=== PATIENT | male | born 1945 | race Hispanic/Latino ===

== ENCOUNTER → 2023-07-16 | Outpatient (CLI) | payer MEDICARE, OTHER | END | disposition home or self-care (01) | LOC: SHCH 14:53 | PROVIDERS: ATTEND Internal Medicine | DX: I47.29 Other ventricular tachycardia (principal); E11.9 Type 2 diabetes mellitus without complications | CPT/HCPCS: 93306 ==

== ENCOUNTER → 2024-08-30 | Outpatient (CLI) | payer OTHER ==
[~2024-08-30] MED LIST: FERS325 PO; GLUC1TAB22 PO; INSU3INS3 SQ; LISI2.5T13 PO; MELA1TAB17 PO; METO-408 PO; SERT100T PO; SITA1TAB2 PO; [UNRECOGNIZED DRUG - CODE] PO
== END | disposition home or self-care (01) ==
LOC: SHCH 12:51
PROVIDERS: ATTEND Internal Medicine
DX: I70.203 Unspecified atherosclerosis of native arteries of extremities, bilateral legs (principal)
CPT/HCPCS: 93925

== ENCOUNTER 2024-12-28 16:00 | Inpatient (IN) | payer MEDICARE ==
[~2024-12-28] VITALS: Ht 167.6 cm; Wt 58.5 kg
[2024-12-28 12:19] LABS: BASOPHILS # (AUTO) 0.03 K/uL (0.00-0.20); BASOPHILS % (AUTO) 0.4 % (0.0-5.0); EOSINOPHILS # (AUTO) 0.16 K/uL (0.00-0.70); EOSINOPHILS % (AUTO) 2.3 % (0.0-8.0); HEMATOCRIT 32.1 % (42-54); IMMATURE GRANULOCYTE ABSOLUTE 0.03 K/uL (0-1); LYMPHOCYTES # (AUTO) 1.6 K/uL (1.0-4.8); LYMPHOCYTES % (AUTO) 23.4 % (21.0-51.0); MEAN CORPUSCULAR HGB CONC 32.1 g/dL (32.0-36.0); MEAN CORPUSCULAR VOLUME 93.6 fL (79-99); MONOCYTES # (AUTO) 0.5 K/uL (0.1-1.0); MONOCYTES % (AUTO) 6.9 % (3.0-13.0); NEUTROPHILS # (AUTO) 4.6 K/uL (1.8-7.7); NEUTROPHILS % (AUTO) 66.6 % (40.0-77.0); PLATELET COUNT (AUTO) 168 K/uL (130-400); RED BLOOD CELL COUNT(AUTO) 3.43 MIL/uL (4.50-6.20); RED CELL DISTRIBUTION WIDTH 13.5 % (11.0-15.5)
[2024-12-28 12:30] LABS: INR 0.94 (0.85-1.15); PROTHROMBIN TIME 10.6 SEC (9.6-11.6)
[2024-12-28 12:32] LABS: PARTIAL THROMBOPLASTIN TIME 28.7 SEC (26.3-35.5)
[2024-12-28 12:37] LABS: ALBUMIN 3.2 g/dL (3.5-5.0); CREATININE 1.3 mg/dL (0.5-1.3); POTASSIUM 5.1 mmol/L (3.5-5.1)
[2024-12-28 12:38] VITALS: BP 112/51; PULSE 82; RESP 18; TEMP 97.9
[2024-12-28] MEDS ORDERED: TAMS-1 PO (16:42)
[2024-12-28] MEDS ORDERED: ATOR40TA71 PO (16:42)
[2024-12-28] MEDS ORDERED: ASPI-1443 PO (16:42)
--- NOTE | 2024-12-30 13:00 | NUR ---
DR. ORLANDO MADE AWARE REGARDING H & H RESULTS, OK TO PROCEED.
[2025-01-02] VITALS (24 sets, daily range): BP systolic 112–146; BP diastolic 49–72; PULSE 71–96; RESP 12–20; TEMP 97.6–98.8; O2SAT 98
[2025-01-02] MEDS ORDERED: TRANEXAMIC ACID 1000MG/10ML ONE (07:17)
[2025-01-02] MEDS: ceFAZolin SODIUM 2 GM VIAL ONE (07:50)
[2025-01-02] MEDS: 0.9%NACL 1000ML 1,000 ML IV ONE ×2 (07:50→15:08)
[2025-01-02] MEDS ORDERED: LIDOCAINE PF 100MG/5ML (2%) SYRINGE 5ML ONE (09:47)
[2025-01-02] MEDS ORDERED: rocuRONium bROMide 10MG/1ML 5ML VL ONE ×2 (09:47→11:23)
[2025-01-02] MEDS ORDERED: proPOFol 10 MG/ML 20ML VIAL IV ONE (09:47)
[2025-01-02] MEDS: ceFAZolin SODIUM 2 GM VIAL IVPB ONE (09:56)
--- NOTE | 2025-01-02 10:12 | DS ---
Discharge Summary Hospital Course Summary: The patient was admitted to the hospital postoperatively on 01/02/2025 after undergoing left total hip arthroplasty. They did well with routine postoperative pain control. They worked well with physical therapy. They developed some acute blood loss anemia but remained asymptomatic. The hospital course was otherwise uncomplicated. They were subsequently able to be discharged on postoperative day 3 once discharge arrangements were made with [facility] in three midnight requirement met for insurance. Molasses Feed Mixer(s): none Procedure(s): Left total hip arthroplasty, 01/02/2025 Assessment/Plan: ASSESSMENT: POD 2 status post left total hip arthroplasty PLAN: See discharge instructions Discharge Instructions: Begin working with physical therapy at the facility. Remembered do not flex the hip more than 90 and do not cross midline at the knees or ankles for the 1st six weeks. If you are side sleeper place a pillow between the knees and ankles to prevent the legs from crossing. Dressing may be removed 01/04/2025 and left open to air. Showers ok allowing soap and water to run over the wound. Pat dry. Do not submerge wound in tub/pool. Do not apply ointments. Do not apply Betadine. Do not apply peroxide. Ice packs to decrease pain/swelling. Prescriptions have been sent to the pharmacy: *[facility] 5/325mg 1 tab every 6 hours as needed for severe pain. (please call for refills) Cyclobenzaprine 5mg 1 tab every 8 hours as needed for muscle spasm pain. Colace 100mg 1 tab orally twice a day as needed for constipation. Aspirin 325mg for 30 days to prevent blood clots. Call for a follow-up appointment in 2-3 weeks at [facility]. Home Medications: Active Scripts Hydrocodone/Acetaminophen (Hydrocodon-Acetaminophen 5-325) 5 Mg-325 Mg Tablet, 1 TAB PO Q4H PRN for MODERATE/SEVERE PAIN LEVEL, #28 TAB 0 Refills Prov:OMAR ORLANDO MD 01/05/25 Reported Medications Atorvastatin Calcium (Atorvastatin Calcium) 40 Mg Tablet, 40 MG PO HS, TAB 12/28/24 Tamsulosin HCl (Flomax) 0.4 Mg Cap.er.24h, 0.4 MG PO HS, CAPSULE. 12/28/24 Aspirin (Aspirin EC) 81 Mg Tablet., 81 MG PO DAILY, TAB 12/28/24 Insulin Glargine,Hum.rec.anlog (Lantus Solostar) 100 Unit/Ml (3 Ml) Insuln.pen, 34 UNIT SQ DAILY, SYRINGE 08/12/23 Multivit-Minerals/FA/Lycopene (One-A-Day Men's 50 Plus Tablet) 400 Mcg-370 Mcg Tablet, 1 EACH PO DAILY, TAB 08/12/23 Melatonin/Pyridoxine HCl (B6) (Melatonin 5 mg Tablet) 5 Mg-10 Mg Tablet, 1 EACH PO HS, TAB 08/12/23 Sitagliptin Phos/Metformin HCl (Janumet 50-500 mg Tablet) 50 Mg-500 Mg Tablet, 1 EACH PO BID, TAB 08/12/23 Lisinopril (Lisinopril) 2.5 Mg Tablet, 2.5 MG PO DAILY, TAB 08/12/23 Sertraline HCl (Zoloft) 100 Mg Tablet, 50 MG PO HS, TAB 08/12/23 Gluc Price/Chondro Price A/Vit C/Mn (Glucosamine Chondroitin Tab) 750 Mg-600 Mg-55 Mg- 5 Mg Tablet, 1 EACH PO DAILY, TAB 08/12/23 Ferrous Sulfate (Ferrous Sulfate) 325 Mg (65 Mg Iron) Ectab, 325 MG PO HS, TAB.EC 08/12/23 Metoprolol Succinate (Metoprolol Succinate) 25 Mg Tab.er.24h, 25 MG PO DAILY, TAB 08/12/23 OMAR ORLANDO MD Jan 02, 2025 10:12
[2025-01-02] MEDS ORDERED: dexaMETHasone SOD PHOSPHATE 10MG/ML 1ML VIAL ONE (10:21)
[2025-01-02] MEDS ORDERED: PoTASSium chloRIDE 20MEQ ER 20 MEQ ERTAB PO PRN (10:30)
[2025-01-02] MEDS ORDERED: CALCIUM CARB 500MG PO PRN (10:30)
[2025-01-02] MEDS ORDERED: PoTASSium chl 10% ELIXIR 20MEQ 20 MEQ/15 ML UDCUP PO PRN (10:30)
[2025-01-02] MEDS ORDERED: FERROUS FUMARATE 324 MG TABLET PO PRN (10:30)
[2025-01-02] MEDS ORDERED: FENTanyl CITRate PF 50 MCG/1 ML 2ML VIAL ONE ×2 (10:30→10:37)
[2025-01-02] MEDS ORDERED: PoTASSium chloRIDE 20MEQ/100ML 100 ML IV PRN (10:30)
[2025-01-02] MEDS ORDERED: traMADol HCL 50 MG TABLET PO PRN (10:30)
[2025-01-02] MEDS ORDERED: ePHEDrine SULFate 50 MG/ML AMPULE ONE (11:16)
[2025-01-02] MEDS: INSULIN humuLIN R 100 UNIT/ML 3ML SQ SCH (11:30)
--- NOTE | 2025-01-02 12:05 | HMCIMG ---
HIP UNILAT 4VW LEFT REASON: Lt. total hip arthroplasty. COMPARISON: None TECHNIQUE: Fluoroscopic images of left hip were obtained. FINDINGS: Please see procedure report by referring physician. IMPRESSION: Intraoperative films.
[2025-01-02] MEDS ORDERED: ROPivacaine 0.5% 5MG/ML 30ML ONE (12:10)
--- NOTE | 2025-01-02 12:22 | OP ---
Operative Note: DATE OF PROCEDURE: 01/02/25 SURGEON: OMAR ORLANDO MD LEATHER SPRAYER: Nikolas Johnston ANESTHESIA: General and fascia iliaca block ANESTHESIOLOGIST/CONCRETE BUSTER OPERATOR: Pernell Marks CRNA PREOPERATIVE DIAGNOSIS: Left hip osteoarthritis POSTOPERATIVE DIAGNOSIS: Left hip osteoarthritis PROCEDURE: Left total hip arthroplasty COMPLICATIONS: Periprosthetic fracture of calcar ESTIMATED BLOOD LOSS: 200 cc INDICATIONS: 79-year-old male with severe left hip osteoarthritis failing conservative management. After discussion of the risks, benefits, and alternatives, the patient voluntarily agreed to undergo the aforementioned procedure. IMPLANTS: [employer]hew R3 54 mm shell with 6.5 mm screws x2, OR30 dual mobility construct with Oxinium liner, 42 mm polyethylene insert and 28 mm Oxinium head and -3, high offset size 8 anthology stem, 2.0 accord cerclage cable DESCRIPTION OF PROCEDURE: Patient was properly identified in the preoperative holding area. Surgical site marking was verified and surgery consent reviewed. The patient was then taken to the operating room and placed in supine position on the OR table. After induction of general anesthesia, preoperative antibiotics were given. The patient was then transitioned in the lateral decubitus position with the left side up. All bony prominences were well-padded. Left lower extremity was then prepped and draped in the usual sterile fashion. Surgical time out was done verifying correct surgery, side, site, and location to be performed. We then began the procedure by making approximately 15 cm long incision centered over the greater trochanter. Here we came sharply through skin down to the fascia. Hemostasis was then achieved using Bovie electrocautery. We then incised fascia in line with the skin incision and finger split the tensor muscle proximally. We then placed our Charnley retractor. At this point we identified the vastus ridge and began elevating the full-thickness soft tissue flap off of the vastus ridge, splitting the vastus lateralis and gluteus muscles as necessary. We then proceeded to externally rotate the femur while making this flap. We resected part of the anterior capsule. The femoral head and neck was then delivered into view. We then dislocated the hip and performed a femoral neck osteotomy approximately half fingerbreadth proximal lesser trochanter. We then placed our retractors around the superior and anterior portion of the acetabulum and began to remove the labrum circumferentially. We then began reaming the acetabulum where we reamed up to a size 53 ensuring appropriate anteversion and abduction. We then proceeded to trial with the size 54 acetabular component and this appeared to sit well. We opened our size 54 acetabular component and after irrigating out the wound malleted this into place. It appeared to have good press-fit however we elected to place 6.5 mm s crews x2. We drilled and filled the screws in standard fashion in the posterior superior portion of the cup. We then placed the manhole cover on the center of the cup. The wound was thoroughly irrigated out further and we placed the acetabular liner and impacted this in place in standard fashion. We then proceeded to reposition our retractors to elevate the proximal femur out of the wound. We then used the box chisel and canal finder to began preparing the femoral side and sequentially broached up to the aforementioned size stem. Once we felt we had good fit, fill, and control of the femur with the stem in place we then used our trial head component and reduce the hip with the minus three head due to soft tissue tension. The hip was noted to have some impingement of the greater trochanter around this time the limb with extension and external rotation so we dislocated the hip and trialed once more using a high offset neck. Upon reduction, we had appropriate soft tissue tensioning, limb length and stable range of motion. We therefore dislocated the hip once more removed our trial components thoroughly irrigated the out the wound and placed our final components in standard fashion. Prior to reduction we noted there to be a crack in the calcar. We then elected to place a cerclage cable. This was done in standard fashion just proximal to the lesser trochanter and tightened down and trimmed. The hip was then reduced with the final components in place. It was found to be stable through range of motion with appropriate soft tissue tensioning and appropriate limb length. At this point we placed a bump under the knee and the foot on the male with a stack of towels to allow for internal rotation. We repaired the abductors back to the greater trochanter using #5 Ethibond. We then repaired the rent in the vastus lateralis and gluteus muscles using #1 Vicryl in a running fashion. We removed our Charnley retractor and began to repair the IT band using #1 Vicryl in interrupted [id number] fashion. At this point we began to close her subcutaneous tissue using 2-0 Vicryl. Running 3-0 Monocryl in subcuticular fashion with Dermabond placed over this for the skin. Island barrier dressing was then applied. Patient was returned to supine position with abduction pillow placed, awakened from anesthesia, and taken to the recovery room in stable condition. OMAR ORLANDO MD Jan 02, 2025 12:22
[2025-01-02] MEDS ORDERED: ondanSETRON 4MG INJ ONE (12:36)
[2025-01-02] MEDS: SUGAMMADEX SODIUM 200 MG/2 ML VIAL IV ONE (13:37)
[2025-01-02] MEDS: 0.9%NACL 1000ML 1,000 ML IV SCH (13:37)
[2025-01-02] MEDS: ketOROlac 15MG/ML VIAL (15MG/ML) IV SCH ×2 (13:37→21:54)
--- NOTE | 2025-01-02 14:06 | HMCIMG ---
HIP BILAT 2VW HISTORY: Hip surgery COMPARISON: None TECHNIQUE: 5 images of bilateral hips were obtained. FINDINGS: Total left hip replacement changes are seen. Please see procedure report by referring physician. There is soft tissue swelling with soft tissue emphysema. Vascular calcifications are seen. There is no acute displaced fracture or dislocation. Degenerative changes are seen. IMPRESSION: 1. Findings as described above.
[2025-01-02] MEDS: HYDROcodone/APAP 5/325 1 TAB TABLET PO PRN (15:03)
[2025-01-02] MEDS: GABApentin 100 MG CAPSULE PO SCH (15:03)
[2025-01-02] MEDS: CYCLOBENZAPRINE HCL 10 MG TABLET PO PRN (15:03)
[2025-01-02] MEDS: ketOROlac 15MG/ML VIAL (15MG/ML) ONE (15:08)
[2025-01-02] MEDS: ketOROlac 30MG VIAL (30MG/ML) ONE (15:08)
--- NOTE | 2025-01-02 17:30 | NUR ---
PT IN ROOM 421 AOX3, FAMILY MEMBER AT BEDSIDE, DENIES ANY PAIN OR DISCOMFORT AT THIS TIME. OPTIFOAM DRESSING TO LEFT HIP, CLEAN AND INTACT. STABLE VS , NO 02 IN PLACED. BED LOW AND LOCKED, SIDERAILS X2 UP, CALL LIGHT WITHIN REACH. PHYSICAL THERAPY PRESENT TO EVAL/TREAT. NO FURTHER COMMENTS OR CONCERNS AT THIS TIME.
[2025-01-02] MEDS: ceFAZolin SODIUM 2 GM VIAL IVP SCH (18:18)
[2025-01-02] MEDS: PYRIDOXINE HCL PO SCH (21:00)
[2025-01-02] MEDS: SITAGLIPTIN PHOS PO SCH (21:00)
[2025-01-02] MEDS: METFORMIN HCL PO SCH (21:00)
[2025-01-02] MEDS: MELATONIN PO SCH (21:00)
[2025-01-02] MEDS: ASPIRIN 325MG TAB PO SCH (21:50)
[2025-01-02] MEDS: doCUSate SODIUM 100 MG CAP PO SCH (21:50)
[2025-01-02] MEDS: FERROUS SULFATE 325 MG TABLET.DR PO SCH (21:50)
[2025-01-02] MEDS: tamSULOsin HCL 0.4 MG CAP.ER.24H PO SCH (21:58)
[2025-01-02] MEDS: atorVAStatin 40 MG TABLET PO SCH (21:58)
[2025-01-02] MEDS: SERTraline HCL 50 MG TABLET PO SCH (21:59)
[2025-01-03] VITALS (8 sets, daily range): BP systolic 93–152; BP diastolic 47–71; PULSE 78–91; RESP 18–20; TEMP 97.6–98.8; O2SAT 98–100
[2025-01-03] MEDS: ondanSETRON 4MG INJ IVP PRN (00:56)
[2025-01-03 05:38] LABS: HEMATOCRIT 26.7 % (42-54); MEAN CORPUSCULAR HEMOGLOBIN 30.4 pg (27.0-33.0); MEAN CORPUSCULAR HGB CONC 33.3 g/dL (32.0-36.0); MEAN CORPUSCULAR VOLUME 91.1 fL (79-99); RED BLOOD CELL COUNT(AUTO) 2.93 MIL/uL (4.50-6.20); RED CELL DISTRIBUTION WIDTH 13.7 % (11.0-15.5); WHITE BLOOD COUNT (AUTO) 9.3 K/uL (4.8-10.8)
[2025-01-03 05:57] LABS: CREATININE 1.9 mg/dL (0.5-1.3); POTASSIUM 4.5 mmol/L (3.5-5.1)
--- NOTE | 2025-01-03 07:54 | PN ---
Ortho postop day one. This morning patient is awake alert in ambulating within the confines of his room. He is now seated at the bedside in a chair enjoying his breakfast. He reports some pain but acceptable. is present in the room. We discussed the operative findings including the calcar periprosthetic fracture. We discussed the most recent x-rays explained the repair. He is to continue weight-bearing as tolerated. Vital signs have been stable. Afebrile. Voiding on his own. Laboratory results reviewed. He had a drop in hemoglobin and hematocrit as expected after total hip arthroplasty. Currently is asymptomatic and we will address per protocol as necessary. Instructed on incentive spirometry. SCD stockings are currently present and they are on. Dressing is intact. Ice is present to the operative site. The lower extremity shows minimal edema. Negative Homans. Ambulated with therapy yesterday and is pending further therapy this morning. Anticipated discharge goal is skilled nurse facility preferably at [facility]. Assessment: Status post left total hip arthroplasty with repair of periprosthetic fracture; calcar. Asymptomatic acute postoperative blood loss anemia. Plan: Continue with Dr. Armendariz's total hip arthroplasty protocol and discharge planning. Asymptomatic acute postoperative blood loss anemia addressed with protocol Vitals/Labs Vital Signs Date Time Temp Pulse Resp B/P (MAP) Pulse Ox O2 Delivery O2 Flow Rate FiO2 01/03/25 04:23 97.9 91 18 101/52 98 Room Air 21 01/02/25 20:00 0 Laboratory Tests 01/03/25 05:18 Medications Current Medications Cefazolin Sodium 2 gm STK-MED ONCE .ROUTE; Start 01/02/25 at 07:11; Stop 01/02/25 at 07:11; Status DC Sodium Chloride 1,000 ml @ As Directed STK-MED ONCE IV Last administered on 01/02/25at 07:50; Start 01/02/25 at 07:11; Stop 01/02/25 at 07:12; Status DC Tranexamic Acid 1,000 mg STK-MED ONCE .ROUTE; Start 01/02/25 at 07:17; Stop 01/02/25 at 07:17; Status DC Lidocaine HCl 100 mg STK-MED ONCE .ROUTE; Start 01/02/25 at 09:47; Stop 01/02/25 at 09:47; Status DC Propofol 200 mg STK-MED ONCE IV; Start 01/02/25 at 09:47; Stop 01/02/25 at 09:47; Status DC Rocuronium Harrison 50 mg STK-MED ONCE .ROUTE; Start 01/02/25 at 09:47; Stop 01/02/25 at 09:47; Status DC Sodium Chloride 1,000 ml @ 100 mls/hr Q10H IV Last administered on 01/02/25at 13:37; Start 01/02/25 at 10:30; Stop 01/03/25 at 10:29 Polyethylene Glycol 17 gm DAILY PO; Start 01/03/25 at 09:00; Stop 02/02/25 at 08:59 Bisacodyl 10 mg DAILY PRN RC; Start 01/05/25 at 10:30; Stop 02/04/25 at 10:29 Aspirin 325 mg BID PO Last administered on 01/02/25at 21:50; Start 01/02/25 at 21:00; Stop 02/01/25 at 20:59 Ketorolac Tromethamine 15 mg Q6H PRN IV; Start 01/03/25 at 10:30; Stop 01/08/25 at 10:29 Ferrous Fumarate 324 mg DAILY PRN PO; Start 01/02/25 at 10:30; Stop 02/01/25 at 10:29 Calcium Carbonate 500 mg Q12H PRN PO; Start 01/02/25 at 10:30; Stop 02/01/25 at 10:29 Insulin Human Regular INSULIN SLIDING SCAL... ACHS SQ Last administered on 01/02/25at 22:42; Start 01/02/25 at 11:30; Stop 02/01/25 at 11:29 Ondansetron HCl 4 mg Q6H PRN IVP Last administered on 01/03/25at 00:56; Start 01/02/25 at 10:30; Stop 02/01/25 at 10:29 Cefazolin Sodium 2 gm Q8H IVP Last administered on 01/02/25at 22:58; Start 01/02/25 at 15:30; Stop 01/02/25 at 23:31; Status DC Gabapentin 100 mg TID PO Last administered on 01/02/25at 21:50; Start 01/02/25 at 14:00; Stop 02/01/25 at 13:59 Cyclobenzaprine HCl 5 mg Q8H PRN PO Last administered on 01/02/25at 15:03; Start 01/02/25 at 10:30; Stop 02/01/25 at 10:29 Docusate Sodium 100 mg BID PO Last administered on 01/02/25at 21:50; Start 01/02/25 at 21:00; Stop 02/01/25 at 20:59 Ketorolac Tromethamine 15 mg Q8H IV Last administered on 01/02/25at 13:37; Start 01/02/25 at 10:30; Stop 01/02/25 at 18:25; Status DC Potassium Chloride 100 ml @ 100 mls/hr AD PRN IV; Start 01/02/25 at 10:30; Stop 02/01/25 at 10:29 Potassium Chloride 20 meq AD PRN PO; Start 01/02/25 at 10:30; Stop 02/01/25 at 10:29 Potassium Chloride 20 meq AD PRN PO; Start 01/02/25 at 10:30; Stop 02/01/25 at 10:29 Tramadol HCl 50 mg Q6H PRN PO; Start 01/02/25 at 10:30; Stop 01/07/25 at 10:29 Acetaminophen/ Hydrocodone Bitart Q4H PRN PO Last administered on 01/02/25at 22:58; Start 01/02/25 at 10:30; Stop 01/07/25 at 10:29 Atorvastatin Calcium 40 mg HS PO Last administered on 01/02/25at 21:58; Start 01/02/25 at 21:00; Stop 02/01/25 at 20:59 Lisinopril 2.5 mg DAILY PO; Start 01/03/25 at 09:00; Stop 02/02/25 at 08:59 Metoprolol Succinate 25 mg DAILY PO; Start 01/03/25 at 09:00; Stop 02/02/25 at 08:59 Tamsulosin HCl 0.4 mg HS PO Last administered on 01/02/25at 21:58; Start 01/02/25 at 21:00; Stop 02/01/25 at 20:59 Ferrous Sulfate 325 mg HS PO Last administered on 01/02/25at 21:50; Start 01/02/25 at 21:00; Stop 02/01/25 at 20:59 Home Med (Gluc Price/ Chondro Price A/Vit C... DAILY PO; Start 01/03/25 at 09:00; Stop 02/02/25 at 08:59 Insulin Glargine 34 units DAILY SQ; Start 01/03/25 at 09:00; Stop 02/02/25 at 08:59 Home Med (Melatonin/ Pyridoxine HCl (... HS PO; Start 01/02/25 at 21:00; Stop 02/01/25 at 20:59 Home Med (Multivit-Minerals/ FA/ Lycop... DAILY PO; Start 01/03/25 at 09:00; Stop 02/02/25 at 08:59 Sertraline HCl 50 mg HS PO Last administered on 01/02/25at 21:59; Start 01/02/25 at 21:00; Stop 02/01/25 at 20:59 Home Med (Sitagliptin Phos/ Metformin ... BID PO; Start 01/02/25 at 21:00; Stop 02/01/25 at 20:59 Dexamethasone Sodium Phosphate 10 mg STK-MED ONCE .ROUTE; Start 01/02/25 at 10:21; Stop 01/02/25 at 10:21; Status DC Fentanyl Citrate 100 mcg STK-MED ONCE .ROUTE; Start 01/02/25 at 10:30; Stop 01/02/25 at 10:30; Status DC Fentanyl Citrate 100 mcg STK-MED ONCE .ROUTE; Start 01/02/25 at 10:37; Stop 01/02/25 at 10:37; Status DC Cefazolin Sodium 2 gm STK-MED ONCE IVPB Last administered on 01/02/25at 09:56; Start 01/02/25 at 09:56; Stop 01/02/25 at 10:42; Status DC Tranexamic Acid 1,000 mg STK-MED ONCE IV Last administered on 01/02/25at 10:05; Start 01/02/25 at 10:05; Stop 01/02/25 at 10:42; Status DC Ephedrine Sulfate 50 mg STK-MED ONCE .ROUTE; Start 01/02/25 at 11:16; Stop 01/02/25 at 11:16; Status DC Rocuronium Harrison 50 mg STK-MED ONCE .ROUTE; Start 01/02/25 at 11:23; Stop 01/02/25 at 11:24; Status DC Ropivacaine 150 mg STK-MED ONCE .ROUTE; Start 01/02/25 at 12:10; Stop 01/02/25 at 12:11; Status DC Ondansetron HCl 4 mg STK-MED ONCE .ROUTE; Start 01/02/25 at 12:36; Stop 01/02/25 at 12:36; Status DC Ketorolac Tromethamine 30 mg STK-MED ONCE .ROUTE; Start 01/02/25 at 13:34; Stop 01/02/25 at 13:35; Status DC Sodium Chloride 1,000 ml @ As Directed STK-MED ONCE IV; Start 01/02/25 at 13:35; Stop 01/02/25 at 13:35; Status DC Ketorolac Tromethamine 15 mg STK-MED ONCE .ROUTE; Start 01/02/25 at 13:36; Stop 01/02/25 at 13:36; Status DC Ketorolac Tromethamine 15 mg Q8H6 IV Last administered on 01/03/25at 06:43; Start 01/02/25 at 22:00; Stop 01/03/25 at 14:01 BARRETT CHEEMA NP Jan 03, 2025 07:54
[2025-01-03] MEDS: INSULIN GLARgine 100 UNITS/ML 10 ML VIAL SQ SCH (08:31)
[2025-01-03] MEDS: polyETHYLene GLYCol 3350 17 GM POWD.PACK PO SCH (08:33)
[2025-01-03] MEDS: LYCOPENE PO SCH (08:34)
[2025-01-03] MEDS: [UNRECOGNIZED DRUG - OTHER] PO SCH (08:34)
[2025-01-03] MEDS: VIT C PO SCH (08:34)
[2025-01-03] MEDS: LISINOPRIL 2.5 MG TABLET PO SCH (08:34)
[2025-01-03] MEDS: GLUC SU PO SCH (08:34)
[2025-01-03] MEDS: [UNRECOGNIZED DRUG - OTHER] PO SCH (08:34)
[2025-01-03] MEDS: CHONDRO SU A PO SCH (08:34)
[2025-01-03] MEDS: MULTIVIT MINERALS PO SCH (08:34)
[2025-01-03] MEDS: metOPROLol sucCINATE 25 MG TAB.SR.24H PO SCH (08:34)
[2025-01-03] MEDS ORDERED: ketOROlac 15MG/ML VIAL (15MG/ML) IV PRN (10:30)
--- NOTE | 2025-01-03 15:00 | NUR ---
DCP Pt awake, alert, oriented x3 lives with spouse Ling Whitfield [phone]. Independent and has a cane if needed Anticipates discharge plan is for [facility], release of information is signed and in chart.. Addendum: 01/03/25 at 1503 by MIGUEL HARTMANN RN CM Amended: Links added.
--- NOTE | 2025-01-03 15:30 | NUR ---
ORTHO COORDINATOR: TEACHING REGARDING DVT AND PNEUMONIA PREVENTION, PAIN EXPECTATIONS AND PAIN MANAGEMENT. PATIENT IN BED, FAMILY MEMBER AT BEDSIDE. INCENTIVE SPIROMETER AT BEDSIDE. PATIENT ASKED HOW OFTEN HE HAS USED, RESPONDED A FEW TIMES. REQUESTED PATIENT PERFORM EVERY 2 HOURS, 10 TIMES OR AT DURING COMMERCIAL BREAKS WHILE WATCHING TV. PATIENT INSTRUCTED TO CONTINUE INCENTIVE SPIROMETRY WHILE IN REHAB. RATIONALE PROVIDED. PATIENT VERBALIZED UNDERSTANDING. PATIENT RETURN DEMONSTRATED PROPER FOOT FLEXION AND EXTENSION EXERCISES. B SCD SLEEVES IN PLACE AND FUNCTIONING. REVIEWED NUMERIC PAIN SCALE, REMINDING PATIENT MEDICATIONS WERE AVAILABLE TO TREAT PAIN FROM 1-10. REMINDED PATIENT THAT PAIN MEDICATIONS MUST BE REQUESTED AND TO PROVIDE A NUMERIC VALUE AND TYPE OF PAIN. PATIENT VERBALIZED UNDERSTANDING. PATIENT INSTRUCTED TO CONTINUE INCENTIVE SPIROMETRY AT REHAB. TO CONTINUE PREMEDICATING PRIOR TO PHYSICAL THERAPY AT REHAB AND TO CONTINUE DVT PREVENTION EXERCISES. PATIENT VERBALIZED UNDERSTANDING TO INSTRUCTIONS. NO ADDITIONAL QUESTIONS OR CONCERNS. PATIENT HAS NOT SHOWERED. [id number] REPORT TO PRIMARY NURSE. REQUESTED TO GET PATIENT UP TO SHOWER. PRIMARY NURSE ACKNOWLEDGED COMMUNICATION.
[2025-01-04] VITALS (7 sets, daily range): BP systolic 91–143; BP diastolic 41–64; PULSE 57–102; RESP 18–20; TEMP 97.8–98.4; O2SAT 99–100
--- NOTE | 2025-01-04 17:40 | PN ---
Ortho postop day two Patient reports he has some discomfort but that his pain is well controlled. He was having blood pressure problems today and did not ambulate with physical therapy this afternoon. He reports that he would like to take a shower but has mostly been returned to the bed due to hypotension today. Vital signs stable other than some mild hypotension, afebrile Alert and oriented x3, no acute distress Sitting upright in bed semi reclined position Demonstrates IS use with good volume Nonlabored breathing Left lower extremity: Intact ankle dorsiflexion and plantar flexion Clinically appears to have 2-3 cm leg length discrepancy Ambulated 60 ft with PT this morning. Hypotension prevented in ambulation this afternoon Discharge planning is for shelter facility Assessment/ plan: Postop day two status post left total hip arthroplasty doing well Acute blood loss anemia, asymptomatic -check patient's blood pressure prior to administering antihypertensives. -wean back on the [place] to one tab -discontinue gabapentin -patient to get up to shower if blood pressure tolerates -continue my routine postoperative care and discharge planning Vitals/Labs Vital Signs Date Time Temp Pulse Resp B/P (MAP) Pulse Ox O2 Delivery O2 Flow Rate FiO2 01/04/25 11:49 98.4 57 20 91/41 96 Room Air 21 01/04/25 08:00 0 Medications Current Medications Cefazolin Sodium 2 gm STK-MED ONCE .ROUTE; Start 01/02/25 at 07:11; Stop 01/02/25 at 07:11; Status DC Sodium Chloride 1,000 ml @ As Directed STK-MED ONCE IV Last administered on 01/02/25at 07:50; Start 01/02/25 at 07:11; Stop 01/02/25 at 07:12; Status DC Tranexamic Acid 1,000 mg STK-MED ONCE .ROUTE; Start 01/02/25 at 07:17; Stop 01/02/25 at 07:17; Status DC Lidocaine HCl 100 mg STK-MED ONCE .ROUTE; Start 01/02/25 at 09:47; Stop 01/02/25 at 09:47; Status DC Propofol 200 mg STK-MED ONCE IV; Start 01/02/25 at 09:47; Stop 01/02/25 at 09:47; Status DC Rocuronium Blanket 50 mg STK-MED ONCE .ROUTE; Start 01/02/25 at 09:47; Stop 01/02/25 at 09:47; Status DC Sodium Chloride 1,000 ml @ 100 mls/hr Q10H IV Last administered on 01/02/25at 13:37; Start 01/02/25 at 10:30; Stop 01/03/25 at 10:29; Status DC Polyethylene Glycol 17 gm DAILY PO Last administered on 01/04/25at 09:18; Start 01/03/25 at 09:00; Stop 02/02/25 at 08:59 Bisacodyl 10 mg DAILY PRN RC; Start 01/05/25 at 10:30; Stop 02/04/25 at 10:29 Aspirin 325 mg BID PO Last administered on 01/04/25at 09:17; Start 01/02/25 at 21:00; Stop 02/01/25 at 20:59 Ketorolac Tromethamine 15 mg Q6H PRN IV; Start 01/03/25 at 10:30; Stop 01/08/25 at 10:29 Ferrous Fumarate 324 mg DAILY PRN PO; Start 01/02/25 at 10:30; Stop 02/01/25 at 10:29 Calcium Carbonate 500 mg Q12H PRN PO; Start 01/02/25 at 10:30; Stop 02/01/25 at 10:29 Insulin Human Regular INSULIN SLIDING SCAL... ACHS SQ Last administered on 01/04/25at 12:59; Start 01/02/25 at 11:30; Stop 02/01/25 at 11:29 Ondansetron HCl 4 mg Q6H PRN IVP Last administered on 01/03/25at 00:56; Start 01/02/25 at 10:30; Stop 02/01/25 at 10:29 Cefazolin Sodium 2 gm Q8H IVP Last administered on 01/02/25at 22:58; Start 01/02/25 at 15:30; Stop 01/02/25 at 23:31; Status DC Gabapentin 100 mg TID PO Last administered on 01/04/25at 09:18; Start 01/02/25 at 14:00; Stop 01/04/25 at 11:34; Status DC Cyclobenzaprine HCl 5 mg Q8H PRN PO Last administered on 01/02/25at 15:03; Start 01/02/25 at 10:30; Stop 02/01/25 at 10:29 Docusate Sodium 100 mg BID PO Last administered on 01/04/25at 09:17; Start 01/02/25 at 21:00; Stop 02/01/25 at 20:59 Ketorolac Tromethamine 15 mg Q8H IV Last administered on 01/02/25at 13:37; Start 01/02/25 at 10:30; Stop 01/02/25 at 18:25; Status DC Potassium Chloride 100 ml @ 100 mls/hr AD PRN IV; Start 01/02/25 at 10:30; Stop 02/01/25 at 10:29 Potassium Chloride 20 meq AD PRN PO; Start 01/02/25 at 10:30; Stop 02/01/25 at 10:29 Potassium Chloride 20 meq AD PRN PO; Start 01/02/25 at 10:30; Stop 02/01/25 at 10:29 Tramadol HCl 50 mg Q6H PRN PO; Start 01/02/25 at 10:30; Stop 01/07/25 at 10:29 Acetaminophen/ Hydrocodone Bitart Q4H PRN PO Last administered on 01/04/25at 09:17; Start 01/02/25 at 10:30; Stop 01/07/25 at 10:29 Atorvastatin Calcium 40 mg HS PO Last administered on 01/03/25at 22:01; Start 01/02/25 at 21:00; Stop 02/01/25 at 20:59 Lisinopril 2.5 mg DAILY PO Last administered on 01/04/25at 09:19; Start 01/03/25 at 09:00; Stop 02/02/25 at 08:59 Metoprolol Succinate 25 mg DAILY PO Last administered on 01/04/25at 09:19; Start 01/03/25 at 09:00; Stop 02/02/25 at 08:59 Tamsulosin HCl 0.4 mg HS PO Last administered on 01/03/25at 22:01; Start 01/02/25 at 21:00; Stop 02/01/25 at 20:59 Ferrous Sulfate 325 mg HS PO Last administered on 01/03/25at 22:01; Start 01/02/25 at 21:00; Stop 02/01/25 at 20:59 Home Med (Gluc Price/ Chondro Price A/Vit C... DAILY PO; Start 01/03/25 at 09:00; Stop 02/02/25 at 08:59 Insulin Glargine 34 units DAILY SQ Last administered on 01/04/25at 09:22; Start 01/03/25 at 09:00; Stop 02/02/25 at 08:59 Home Med (Melatonin/ Pyridoxine HCl (... HS PO; Start 01/02/25 at 21:00; Stop 02/01/25 at 20:59 Home Med (Multivit-Minerals/ FA/ Lycop... DAILY PO; Start 01/03/25 at 09:00; Stop 02/02/25 at 08:59 Sertraline HCl 50 mg HS PO Last administered on 01/03/25at 22:00; Start 01/02/25 at 21:00; Stop 02/01/25 at 20:59 Home Med (Sitagliptin Phos/ Metformin ... BID PO; Start 01/02/25 at 21:00; Stop 02/01/25 at 20:59 Dexamethasone Sodium Phosphate 10 mg STK-MED ONCE .ROUTE; Start 01/02/25 at 10:21; Stop 01/02/25 at 10:21; Status DC Fentanyl Citrate 100 mcg STK-MED ONCE .ROUTE; Start 01/02/25 at 10:30; Stop 01/02/25 at 10:30; Status DC Fentanyl Citrate 100 mcg STK-MED ONCE .ROUTE; Start 01/02/25 at 10:37; Stop 01/02/25 at 10:37; Status DC Cefazolin Sodium 2 gm STK-MED ONCE IVPB Last administered on 01/02/25at 09:56; Start 01/02/25 at 09:56; Stop 01/02/25 at 10:42; Status DC Tranexamic Acid 1,000 mg STK-MED ONCE IV Last administered on 01/02/25at 10:05; Start 01/02/25 at 10:05; Stop 01/02/25 at 10:42; Status DC Ephedrine Sulfate 50 mg STK-MED ONCE .ROUTE; Start 01/02/25 at 11:16; Stop 01/02/25 at 11:16; Status DC Rocuronium Blanket 50 mg STK-MED ONCE .ROUTE; Start 01/02/25 at 11:23; Stop 01/02/25 at 11:24; Status DC Ropivacaine 150 mg STK-MED ONCE .ROUTE; Start 01/02/25 at 12:10; Stop 01/02/25 at 12:11; Status DC Ondansetron HCl 4 mg STK-MED ONCE .ROUTE; Start 01/02/25 at 12:36; Stop 01/02/25 at 12:36; Status DC Ketorolac Tromethamine 30 mg STK-MED ONCE .ROUTE; Start 01/02/25 at 13:34; Stop 01/02/25 at 13:35; Status DC Sodium Chloride 1,000 ml @ As Directed STK-MED ONCE IV; Start 01/02/25 at 13:35; Stop 01/02/25 at 13:35; Status DC Ketorolac Tromethamine 15 mg STK-MED ONCE .ROUTE; Start 01/02/25 at 13:36; Stop 01/02/25 at 13:36; Status DC Ketorolac Tromethamine 15 mg Q8H6 IV Last administered on 01/03/25at 14:52; Start 01/02/25 at 22:00; Stop 01/03/25 at 14:01; Status DC OMAR ORLANDO MD Jan 04, 2025 17:40
--- NOTE | 2025-01-04 17:40 | NUR ---
ORTHO COORDINATOR: REINFORCED TEACHING. PATIENT IN BED, ROUNDED WITH DR. ORLANDO. NO ADDITIONAL CONCERNS AT THIS TIME.
[2025-01-04] MEDS ORDERED: HYDROcodone/APAP 5/325 1 TAB TABLET PO PRN (18:30)
[2025-01-05] VITALS: BP 100/55; PULSE 57; RESP 19; TEMP 97.4
[2025-01-05 04:00] VITALS: BP 131/59; PULSE 95; RESP 20; TEMP 98.8
[2025-01-05 08:00] VITALS: BP 126/55; PULSE 100; RESP 16; TEMP 97.7; O2SAT 99
--- NOTE | 2025-01-05 09:45 | NUR ---
ORTHO COORDINATOR: REINFORCED TEACHING. PATIENT IN BED, FAMILY AT BEDSIDE. REINFORCED TEACHING TO CONTINUE USE OF INCENTIVE SPIROMETER AT REHAB ONCE DISCHARGED. ENCOURAGED PATIENT TO CONTINUE FOOT FLEXION/EXTENSION EXERCISES AT REHAB. REVIEWED IMPORTANCE OF CONTINUING PREMEDICATION PRIOR TO PHYSICAL THERAPY OR PERIODS OF HIGH ACTIVITY. PATIENT VERBALIZED UNDERSTANDING TO ALL INSTRUCTIONS. NO ADDITIONAL QUESTIONS/CONCERNS AT THIS TIME.
[2025-01-05] MEDS ORDERED: BisaCODYL 10 MG SUPP.RECT RC PRN (10:30)
[2025-01-05 12:00] VITALS: BP 122/67; PULSE 73; RESP 16; TEMP 97.9
[2025-01-05] MEDS ORDERED: HYDR-4060 PO (12:26)
[2025-01-05] MEDS ORDERED: DOCU-116 PO (12:26)
[2025-01-05] MEDS ORDERED: ASPI-1026 PO (12:26)
[2025-01-05] MEDS ORDERED: CYCL-309 PO (12:26)
[2025-01-05 16:00] VITALS: BP 139/67; PULSE 93; RESP 18; TEMP 98.2
--- NOTE | 2025-01-05 18:15 | NUR ---
[facility] [place] [facility], INCISION SITE TO LT HIP CLEAN AND DRY AND INTACT.
== END 2025-01-05 18:10 | DRG 470 ==
LOC: OBSVTOIN 01-02 06:53 → DAHIP 01-02 06:53 → EDSTATUS 01-02 11:00 → 4DH 01-02 16:40
PROVIDERS: ADMIT Student in an Organized Health Care Education/Training Program; ATTEND Student in an Organized Health Care Education/Training Program
PROC: 3E0T3BZ Introduction of Anesthetic Agent into Peripheral Nerves and Plexi, Percutaneous Approach (ICD-10-PCS; 2025-01-02)
PROC: 0SRB06A Replacement of Left Hip Joint with Oxidized Zirconium on Polyethylene Synthetic Substitute, Uncemented, Open Approach (ICD-10-PCS; principal; 2025-01-02 09:45)
DX: M16.12 Unilateral primary osteoarthritis, left hip (principal); D62 Acute posthemorrhagic anemia; M97.02XA Periprosthetic fracture around internal prosthetic left hip joint, initial encounter
CPT/HCPCS: 36415; 73503; 73521; 80048; 82040; 82948; 84134; 85025; 85027; 85610; 85730; 86140; 87641; C1776; G0378; J1100; J1815; J1885; J2003; J2405; J2704; J2795; J3010; J3490; J7030; A4213; A4215; A4216; A4221; A4222; A4223; A4649; A4663; A4930; A6223; A6255; J0690

== ENCOUNTER 2025-02-11 23:01 | Inpatient (IN) | payer MEDICARE ==
[~2025-02-11] VITALS: Ht 172.7 cm; Wt 67.1 kg
[~2025-02-11 23:01] MED LIST changes: +ASPI-1026 PO; +ATOR40TA69 PO; +CALC500T7 PO; +CYCL-309 PO; +DOCU-116 PO; +FERR324T4 PO; -FERS325 PO; -GLUC1TAB22 PO; +HYDR-4060 PO; +INSU100V IV; +LACT-441 PO; -LISI2.5T13 PO; +MEGE400O40 PO; -MELA1TAB17 PO; +MELA5TAB21 PO; +POLY17PO4 PO; +TAMS-1 PO
--- NOTE | 2025-02-11 23:05 | NUR ---
PATIENT PRESENTS FROM [facility]; FOR INCREASING SOB AND POSITIVE DVT STUDIES; PATIENT BELONGS TO [facility]. PATIENT WAS SEEN FOR ACUTE RESP FAILURE AND HYPERCAPNIA EARLIER THIS MOTH AND WAS TRANSFERED TO [facility]. PATIENT REPORT GIVEN BY ERICKA HENRIQUEZ FROM [facility]. PER ERICKA HENRIQUEZ PATIENT HAD POSITIVE DVT STUDY PATIENT; HAD POSTIVE DVT IN LUE CEPHALIC VESSEL AND RIGHT LOWER EXTREMITY, PATIENT WAS BROUGHT TO FACILITY WITH LUE DOUBLE LUMEN PICC LINE IN PLACE BIPAP; SETTINGS 16/10. FIO2 100%. RR 26. PATIENT WAS STARTED ON HEPARIN GTT AT 2145, NO IV BOLUS GIVEN. PATIENT RECIEVED 5000 UNITS SQ @1700, PATIENT COMES FROM FACILITY ON TPN @50MLS/HR AND IS ON PRECEDEX @1.4. PATIENT RECIEVED MORPHINE 2MG @2210.
--- NOTE | 2025-02-11 23:08 | NUR ---
BIPAP SETTINGS; 07/09, RR 26, FI02 100%
[2025-02-11 23:12] VITALS: TEMP 99
[2025-02-11 23:24] LABS: ABG BASE EXCESS -0.2 mmol/L (-2.0-3.0); ABG HCO3 27.5 mmol/L (21.0-28.0); ABG OXYGEN SATURATION 96.6 % (94.0-98.0); ABG PCO2 64 mmHg (35-48); ABG PH 7.252 (7.350-7.450); CARBON MONOXIDE 0.5 % (0.5-1.5); HHb 3.4; PO2, ARTERIAL BG 102.9 mmHg (83.0-108.0)
[2025-02-11 23:26] LABS: BASOPHILS # (AUTO) 0.04 K/uL (0.00-0.20); BASOPHILS % (AUTO) 0.2 % (0.0-5.0); HEMATOCRIT 28.3 % (42-54); IMMATURE GRANULOCYTE ABSOLUTE 0.19 K/uL (0-1); LYMPHOCYTES # (AUTO) 1.2 K/uL (1.0-4.8); LYMPHOCYTES % (AUTO) 5.1 % (21.0-51.0); MEAN CORPUSCULAR HEMOGLOBIN 28.5 pg (27.0-33.0); MEAN CORPUSCULAR HGB CONC 29.3 g/dL (32.0-36.0); MEAN CORPUSCULAR VOLUME 97.3 fL (79-99); MONOCYTES # (AUTO) 0.8 K/uL (0.1-1.0); MONOCYTES % (AUTO) 3.1 % (3.0-13.0); NEUTROPHILS # (AUTO) 21.7 K/uL (1.8-7.7); NEUTROPHILS % (AUTO) 90.8 % (40.0-77.0); NUCLEATED RED BLOOD CELLS 1.6 % (0.0-0.19); PLATELET COUNT (AUTO) 172 K/uL (130-400); RED BLOOD CELL COUNT(AUTO) 2.91 MIL/uL (4.50-6.20); RED CELL DISTRIBUTION WIDTH 18.7 % (11.0-15.5); WHITE BLOOD COUNT (AUTO) 23.9 K/uL (4.8-10.8)
--- NOTE | 2025-02-11 23:31 | HMCIMG ---
CHEST 1VW HISTORY: Chest pain COMPARISON: 01/24/2025 FINDINGS: A frontal projection of the chest was obtained. There are bilateral pulmonary infiltrates suggestive of pulmonary vascular congestion with possible superimposed pneumonitis. Poststernotomy changes are seen. The heart is enlarged. Degenerative changes of the thoracolumbar spine are present. No evidence of aortic calcification is seen. IMPRESSION: 1. Bilateral pulmonary infiltrates are seen suggestive of pulmonary vascular congestion with possible superimposed pneumonitis.
--- NOTE | 2025-02-11 23:33 | ERN ---
ED Note History of Present Illness Stated Complaint: sob Chief Complaint: Shortness of Breath Time Seen by MD: 23:07 Dictation: This is a 79-year-old male who was hospitalized in January 12, 2025 for hip repair on the left side after which was [facility] re[facility]. Patient was sent back week january from [facility] with increasing shortness of for further evaluation patient needed O2 via non- rebreather mask and his workup was consistent with volume overload. He remained on the non-rebreather mask and eventually was transferred to [facility]. For anemia GI was consulted and as the patient was unstable on high FiO2 requirements EGD was deferred to a later date when patient was more stable. Patient was transferred from [facility] with increasing dyspnea and information that patient was on a BiPAP of 16/10 and FiO2 of 100%. Who was tachypneic he was also noted to have DVTs of left upper extremity and right leg DVT-(no reports were sent) and patient was started on heparin drip. He was also on Precedex drip when patient arrived. It also appears that the patient received morphine. Patient was quite somnolent but after awhile did open his eyes and nodded appropriately. It is hard to get any history from him so most of the information that I am in a rating is through verbal reports from the nurses and chart. Temperature 99 pulse 110 respirations 18 blood pressure 127/58 with a pulse oximetry of 92% on FiO2 of 100% on BiPAP of 16/10 with a set respiratory rate of 26. His chronic medical problems include diabetes mellitus, hypertension, hyperlipidemia, recent hip surgery and metabolic encephalopathy., CAD status post CABG. Allergies: Coded Allergies: No Known Drug Allergies (Unverified Allergy, Unknown, 08/12/23) Home Meds Active Scripts Docusate Sodium (Colace) 100 Mg Capsule, 1 CAP PO BID for 30 Days, #60 CAP 0 Refills Prov:OMAR ORLANDO MD 01/05/25 Hydrocodone/Acetaminophen (Hydrocodon-Acetaminophen 5-325) 5 Mg-325 Mg Tablet, 1 TAB PO Q4H PRN for MODERATE/SEVERE PAIN LEVEL, #28 TAB 0 Refills Prov:OMAR ORLANDO MD 01/05/25 Cyclobenzaprine HCl (Cyclobenzaprine HCl) 10 Mg Tablet, 5 MG PO Q8H PRN for MUSCLE SPASMS, #45 TAB 0 Refills Prov:OMAR ORLANDO MD 01/05/25 Aspirin (Aspirin) 325 Mg Tablet, 325 MG PO BID, #60 TAB 0 Refills Prov:OMAR ORLANDO MD 01/05/25 Reported Medications Ferrous Sulfate (Ferrous Sulfate) 324 Mg (65 Mg Iron) Tablet.dr, 1 TAB PO DAILY for 30 Days, #30 TAB 0 Refills 01/25/25 Tamsulosin HCl (Flomax) 0.4 Mg Cap.er.24h, 1 CAP PO DAILY for 30 Days, #30 CAP 0 Refills 01/25/25 Melatonin (Melatonin) 5 Mg Tab.ir.er, 1 TAB PO HS for sleep for 30 Days, #30 TAB 0 Refills 01/25/25 Atorvastatin Calcium (LIPITOR) 40 Mg Tablet, 1 TAB PO DAILY for 30 Days, #30 TAB 0 Refills 01/25/25 Lactulose (Lactulose) 10 Gram/15 Ml Solution, 30 ML PO BID for constipation, #500 ML 0 Refills 01/25/25 Megestrol Acetate (Megestrol Acetate) 400 Mg/10 Ml (40 Mg/Ml) Oral.susp, 10 ML PO DAILY for 30 Days, #300 ML 0 Refills 01/25/25 Polyethylene Glycol 3350 (Miralax) 17 Gram Powd.pack, 1 PACKET PO DAILY for constipation for 2 Days, #2 PACKET 0 Refills dissolve in water 01/25/25 Calcium Carbonate (Tums) 200 Mg Calcium (500 Mg) Tab.chew, 2 TAB PO Q4H PRN for GI UPSET/UPSET STOMACH for 30 Days, #360 TAB 0 Refills 01/25/25 Insulin Glargine,Hum.rec.anlog (Lantus Solostar) 100 Unit/Ml (3 Ml) Insuln.pen, 20 UNIT SQ HS for 30 Days, ML 0 Refills 01/25/25 Insulin Lispro (Humalog) 100 Unit/Ml Vial, 100 UNITS IV ACHS, VIAL 01/25/25 Multivit-Minerals/FA/Lycopene (One-A-Day Men's 50 Plus Tablet) 400 Mcg-370 Mcg Tablet, 1 EACH PO DAILY, TAB 08/12/23 Sitagliptin Phos/Metformin HCl (Janumet 50-500 mg Tablet) 50 Mg-500 Mg Tablet, 1 EACH PO BID, TAB 08/12/23 Sertraline HCl (Zoloft) 100 Mg Tablet, 50 MG PO HS, TAB 08/12/23 Metoprolol Succinate (Metoprolol Succinate) 25 Mg Tab.er.24h, 25 MG PO DAILY, TAB 08/12/23 Past Medical History Past Medical History: CAD, CHF, Diabetes-Type II, Hypertension Surgical History: CABG, Other Surgical History Other: LEFT HIP Family History: Negative Social History: Negative RN Note Reviewed/Agreed w/PFSH: Yes Review of System Dictation Constitutional: Negative for fever,chills, and weight loss Eyes: Negative for injury, pain,redness, and discharge ENT: Negative for injury,pain or swelling Cardiovascular: Negative for chest pain, palpitations, and edema Respiratory: Positive for shortness of breath, no cough, and wheezing, Abdomen/GI: Negative for abdominal pain, nausea, vomiting, diarrhea, and constipation Back: Negative for injury and pain : Negative for injury, bleeding and discharge MS/Extremity: Negative for injury and deformity Skin: Negative for rash, and discoloration Neuro: Negative for headache, weakness, numbness, tingling, and seizure Psych: Negative for suicide ideation, homicidal ideation, and hallucinations Initial Vital Sign VS Vital Signs Date Time Temp Pulse Resp B/P (MAP) Pulse Ox O2 Delivery O2 Flow Rate FiO2 02/11/25 23:12 99.0 110 18 127/58 92 Bi-PAP+ 100 Physical Exam Dictation General: awake, alert, NAD frail elderly male on BiPAP, on heparin drip and Precedex drip, FiO2 100% Head/Face: Normocephalic, atraumatic Eyes: PERRL, EOMI, vision at baseline ENT: oral cavity clear, TMs clear, no signs of infection Neck: Trachea midline, supple, no nuchal rigidity Cardiovascular: RRR, normal S1/S2, No MRGs, no JVD well-healed previous sternotomy scar Respiratory: Decreased breath sounds bilaterally Abdomen: Soft, non-tender, non-distended, normal bowel sounds, no guarding or rebound. Skin: Warm, dry, normal turgor, no rash MS/Extremity: Pulses equal, no cyanosis, neurovascular intact, FROM Neuro: Very somnolent, strength 5/5, CN 2-12 intact, normal cerebellar exam, normal gait, Psych: Normal behavior, mood, and affect normal Extremities-trace edema without any palpable cords, Homans sign is negative Results (Laboratory/Radiology) Laboratory/Radiology Laboratory Tests Test 02/11/25 23:18 02/11/25 23:21 02/12/25 02:07 White Blood Count 23.9 K/uL (4.8-10.8) H Red Blood Count 2.91 MIL/uL (4.50-6.20) L Hemoglobin 8.3 g/dL (14.0-18.0) L Hematocrit 28.3 % (42-54) L Mean Corpuscular Volume 97.3 fL (79-99) Mean Corpuscular Hemoglobin 28.5 pg (27.0-33.0) Mean Corpuscular Hemoglobin Concent 29.3 g/dL (32.0-36.0) L Red Cell Distribution Width 18.7 % (11.0-15.5) H Platelet Count 172 K/uL (130-400) Mean Platelet Volume 12.8 fL (7.5-10.5) H Immature Granulocyte % (Auto) 0.8 % (0-1) Neutrophils (%) (Auto) 90.8 % (40.0-77.0) H Lymphocytes (%) (Auto) 5.1 % (21.0-51.0) L Monocytes (%) (Auto) 3.1 % (3.0-13.0) Eosinophils (%) (Auto) 0.0 % (0.0-8.0) Basophils (%) (Auto) 0.2 % (0.0-5.0) Neutrophils # (Auto) 21.7 K/uL (1.8-7.7) H Lymphocytes # (Auto) 1.2 K/uL (1.0-4.8) Monocytes # (Auto) 0.8 K/uL (0.1-1.0) Eosinophils # (Auto) 0.00 K/uL (0.00-0.70) Basophils # (Auto) 0.04 K/uL (0.00-0.20) Absolute Immature Granulocyte (auto 0.19 K/uL (0-1) Nucleated Red Blood Cells 1.6 % (0.0-0.19) H White Cell Morphology Comment See comments Red Blood Cell Morphology See comments Prothrombin Time 20.3 SEC (9.6-11.6) H Prothromb Time International Ratio 2.06 (0.85-1.15) H Activated Partial Thromboplast Time 90.2 SEC (26.3-35.5) *H Sodium Level 152 mmol/L (136-145) H Potassium Level 3.7 mmol/L (3.5-5.1) Chloride Level 115 mmol/L (101-111) H Carbon Dioxide Level 31 mmol/L (21-32) Blood Urea Nitrogen 68 mg/dL (7-18) H Creatinine 1.4 mg/dL (0.5-1.3) H Glomerular Filtration Rate Calc 51 mL/min (>90) Random Glucose 101 mg/dL (70-105) Total Calcium 8.0 mg/dL (8.5-10.1) L Total Creatine Kinase 658 U/L (21-232) #*H Troponin I High Sensitivity 273 ng/L (4-75) *H B-Type Natriuretic Peptide 479 pg/mL (0-100) H Blood Gas Specimen Type Arterial Arterial Blood pH 7.252 (7.350-7.450) Arterial Blood Partial Pressure CO2 64 mmHg (35-48) *H Arterial Blood Partial Pressure O2 102.9 mmHg (83.0-108.0) Arterial Blood HCO3 27.5 mmol/L (21.0-28.0) Arterial Blood Oxygen Saturation 96.6 % (94.0-98.0) Arterial Blood Base Excess -0.2 mmol/L (-2.0-3.0) Hemoglobin (Blood Gas) 8.4 g/dL (13.5-17.5) L Sodium (Blood Gas) 154 MMOL/L (136-145) H Bedside Potassium (Blood Gas) 3.7 MMOL/L (3.4-4.5) Bedside Chloride (Blood Gas) 116 MMOL/L (98-107) H Bedside Glucose (Blood Gas) 94 MG/DL (65-95) Bedside Ionized Calcium (Blood Gas) 1.16 MMOL/L (1.15-1.33) Bedside Lactic Acid (Blood Gas) 2.13 MMOL/L (0.36-0.75) H Blood Gas Temperature 37.0 CELSIUS (35.5-37.0) Blood Gas Respiration Rate 26.0 min. Blood Gas Vent Mode BIPAP 16,10 R26 (ROOM AIR) FiO2 100.0 % Blood Gas Specimen Comment RR, RNOSCAR Lactic Acid Level 2.7 mmol/L (0.8-2.5) H Labs Reviewed?: Yes EKG Comment: Twelve lead EKG done on 02/11/2025 at 11:09 p.m. shows a heart rate of 112, MD interval 124, QRS 79, QT/QTC 336/459 Impression normal sinus rhythm with sinus tachycardia occasional PVCs nonspecific ST-T changes in the lateral leads overall appears somewhat low voltage. Probable left atrial enlargement Interpreted by ER MD Dr. Burns Ultrasound Comment: Echocardiogram Conclusion LVEF is 40-45%. Anterior wall is hypokinetic. Stage II diastolic dysfunction. No significant valvular abnormalities. No pericardial effusion. DICTATED BY: KYLE BOYER DO DATE: 01/26/25 0931 ELECTRONICALLY SIGNED BY: KYLE BOYER DO DATE: 01/26/25 1258 ED Course ED Course Orders Procedure Category Date Status Time Vital Signs Per CPOE 02/11/25 Transmitted Routine 23:04 B-Type Natriuretic LAB 02/11/25 Complete Peptide 23:04 Chest 1vw RAD 02/11/25 Resulted 23:04 12 Lead Ekg Tracing- EKG 02/11/25 Logged Technical 23:04 Oxygen By Nc/Pulse Ox CPOE 02/11/25 Transmitted 23:04 Maintain Iv CPOE 02/11/25 Transmitted 23:04 Iv Insertion CPOE 02/11/25 Transmitted 23:04 Cardiac Monitoring CPOE 02/11/25 Transmitted 23:04 Pulse Oximetry With CPOE 02/11/25 Transmitted Vs And Prn 23:04 Cbc With Differential LAB 02/11/25 Complete 23:04 Activity: Br W/Brp CPOE 02/11/25 Transmitted With Assist 23:04 Creatine Kinase, Total LAB 02/11/25 Complete 23:04 Troponin I High LAB 02/11/25 Complete Sensitivity 23:04 Urinalysis Profile LAB 02/11/25 In Process 23:04 Basic Metabolic Panel LAB 02/11/25 Complete 23:04 Arterial Blood Gas + RT 02/11/25 Transmitted 23:04 Bipap Settings RT 02/11/25 Transmitted 23:06 Dexmedetomidine PHA 02/11/25 In Process 400mcg/[id number] 23:30 Heparin 25,000 PHA 02/11/25 In Process Units/250ml D5w 23:30 Pt And Ptt LAB 02/11/25 Complete 23:07 Arterial Blood Gas LAB 02/11/25 Complete Arterial + 23:21 Lactic Acid LAB 02/12/25 Complete 00:23 Blood Cult MELANIE 02/12/25 Logged 00:23 Cefepime Hcl 1 Gm PHA 02/12/25 In Process Vial (Maxipime 1 Gm Vi 00:30 Vancomycin 1g/250ml PHA 02/12/25 Complete Kit (Vancomycin 1g/2 00:30 Dextrose 5%-Water PHA 02/12/25 In Process (D5w) 00:30 Edm Admit Bridge Order ADM 02/12/25 Transmitted 01:49 Admit Orders ADM 02/12/25 Transmitted 01:50 Admit Orders ADM 02/12/25 Transmitted 01:56 Zosyn 3.375gm+Ns 50ml PHA 02/12/25 Complete (Zosyn 3.375gm+Ns 05:00 Vancomycin Protocol PHA 02/12/25 In Process (Vancomycin Protocol 02:00 Critcal Care Consult CONPHYSVC 02/12/25 Transmitted 01:56 Vancomycin Trough LAB 02/14/25 Verified 23:30 Vancomycin 1g/250ml PHA 02/13/25 In Process Kit (Vancomycin 1g/2 01:00 Echo 2-D Complete ECHO 02/12/25 Logged 02:15 Respiratory Cult MELANIE 02/12/25 Logged W/Gram Stain 02:18 Influenza Type A & B, LAB 02/12/25 Logged Rapid 02:18 Covid Rna Naat LAB 02/12/25 Logged 02:18 Current Medications Medications (Trade) Dose Ordered Sig/Rosalio Route PRN Reason Start Time Stop Time Status Last Admin Dose Admin Cefepime HCl (MAXipime 1 GM vial) 1 gm Q12H IVPB 02/12/25 00:30 02/22/25 00:29 02/12/25 00:42 Dexmedetomidine/ Sodium Chloride (PRECEdex 400MCG/ 100ML-NS) 400 mcg PROTOCOL IV 02/11/25 23:30 03/13/25 23:29 02/12/25 00:34 Dextrose 1,000 ml @ 100 mls/hr Q10H IV 02/12/25 00:30 03/14/25 00:29 02/12/25 00:43 Heparin Sodium/ Dextrose 250 ml @ 0 mls/hr PROTOCOL IV 3/22/25 23:30 03/13/25 23:29 02/12/25 00:41 Vancomycin HCl (Vancomycin 1g/ 250ml Kit) 1 gm ONCE ONCE IV 02/12/25 00:30 02/12/25 00:31 DC 02/12/25 00:43 Vital Signs Date Time Temp Pulse Resp B/P (MAP) Pulse Ox O2 Delivery O2 Flow Rate FiO2 02/11/25 23:52 110 32 100 02/11/25 23:12 99.0 115 26 122/47 99 BIPAP 02/11/25 23:12 99.0 110 18 127/58 92 Bi-PAP+ 100 We will perform diagnostic labs, advanced imaging and administer medications according to the patient's complaint. Once the results are available, will review and personally interpreted the labs to rule out any acute life- threatening emergency the trach require immediate intervention and treatment. I will then re-evaluate the patient after treatment and diagnostic exams have return to determine whether the patient requires any further testing, can safely be discharged home or need further admission to hospital for additional treatment and evaluation. Labs reviewed CBC shows a white count of 23.9 hemoglobin 8.3 BNP 7 showed a sodium of 152 chloride of 115 BUN and creatinine are 68 and 1.4 1:20 a.m. troponins 1st set was 273 brain natriuretic peptide was 479. Chest x- ray shows bilateral diffuse pulmonary infiltrates. Blood cultures and septic workup was initiated we will also start empiric antibiotic therapy.-cefepime plus vancomycin I recommended admission to the intensive care unit for management of all the problems listed. Prognosis is extremely poor and his condition is guarded in view of acute respiratory failure sepsis in the setting of a non-STEMI. With multi organ failure and baseline poor functional status, his survival is extremely poor 1:53 a.m. patient has been accepted by Dr. Meléndez covering for Dr. Glynn Morgan for admission to the intensive care unit and further management. Medical Decision Making MDM MDM: Differential diagnosis: Acute on chronic respiratory failure-possibilities entertained are hospital-acquired pneumonia, congestive heart failure, respiratory depression from pain medications, pulmonary embolus Rationale: Tests considered and ordered secondary to shared decision making include: labs, ECG and radiology Previous outside records reviewed: Old ER visits. Risk of complication and/or morbidity or mortality of patient management: None Medications-Per medication reconciliation Need for hospitalization: Patient does meet criteria for hospitalization. Need for emergency major/minor surgery: No There are no social concerns with this patient. Prescription drug management Prescriptions will include symptomatic care Patient's prior external medical records from other ER visits were reviewed by me as indicated. Prior testing and results from previous visits were reviewed. Prior tests were taken into account with medical decision making and resource utilization, independent historian/historians were used to obtain complete medical history. I independently interpreted the test that were performed, results were reviewed by me and considered findings on radiology if ordered. Medical management and examination interpretation discussions were had by me with other qualified healthcare professionals as indicated for the patient's care. Problem List Problem List: (1) Acute respiratory failure with hypoxia and hypercapnia (2) Acute metabolic encephalopathy (3) Acute on chronic diastolic heart failure (4) Sepsis (5) Deep vein thrombosis (DVT) of left upper extremity (6) Right leg DVT (7) NSTEMI (non-ST elevated myocardial infarction) (8) Pneumonia of both lungs Critical Care Note Critical Time: 45 minutes Comment(s) Life-threatening illness; acute on chronic respiratory failure with hypoxia and hypercapnia, bilateral pneumonia, acute metabolic encephalopathy, severe hyponatremia, acute kidney injury, NSTEMI Risk of morbidity mortality-high Complexity of medical decision making-high (X) high probability of sudden clinically significant deterioration in the patient's condition required the highest level of my preparedness to intervene urgently. I provided critical care services requiring my direct and personal management as noted below; (x) chart data review (x) reviewing nurse's notes and/charts (x) documentation time (x) consultation collaboration on findings and therapy options (x) medication orders and management (x) re-evaluations (x) care, transfer of care, and discharge plans (x) ordering and interpreting studies (x) ordering and reviewing labs (x) obtaining necessary history from family, EMS, assisted, private MD, surrogate decision makers because patient was unable to give history due to limitations in the mental status (x) aggregate critical care time was ( 45 ) minutes. This includes only time during which I was engaged in work directly related to the patient's care as described above whether at the bedside or elsewhere in the ER while the patient was critical. My time did not include minutes spent treating any other patients simultaneously or on activities that did not directly contribute to the patient's treatment. It did not include time spent performing other reported procedures or services of residents if any. Breana CRISTOBALCP DX & DISP Disposition: Inpatient Decision to Admit Time: 23:28 Departure Impression: Primary Impression: Acute respiratory failure with hypoxia and hypercapnia Additional Impressions: Acute metabolic encephalopathy, Acute on chronic diastolic heart failure, Pneumonia of both lungs, Acute CHF, NSTEMI (non-ST elevated myocardial infarction), Deep vein thrombosis (DVT) of left upper extremity, Right leg DVT Condition: Stable Additional Instructions: Patient was informed of all the diagnostic labs and procedures conducted in the emergency room today and demonstrated understanding of the results. I personally reviewed and interpreted all the diagnostic exams performed in the ER today. The patient will be admitted to the hospital for further treatment and evaluation. Disposition-admit to facility Condition-stable/guarded Course-uncertain at this time Pain status-decreased Assessment-exam unchanged Admission Certification- I certify that the patients status is appropriate and is based on my best clinical judgment and the patient's condition as documented in the medical records Referrals: JESSI MORGAN MD (PCP) BREANA BURNS MD Feb 11, 2025 23:33
[2025-02-11 23:34] LABS: CREATININE 1.4 mg/dL (0.5-1.3); POTASSIUM 3.7 mmol/L (3.5-5.1)
[2025-02-11 23:36] LABS: INR 2.06 (0.85-1.15); PROTHROMBIN TIME 20.3 SEC (9.6-11.6)
[2025-02-11 23:47] LABS: PARTIAL THROMBOPLASTIN TIME 90.2 SEC (26.3-35.5)
[2025-02-11 23:52] VITALS: PULSE 110; RESP 32; O2SAT 100
[2025-02-12] VITALS (17 sets, daily range): BP systolic 74–158; BP diastolic 28–86; PULSE 85–128; RESP 6–64; TEMP 97.2; O2SAT 98–100
[2025-02-12 00:07] LABS: B-TYPE NATRIURETIC PEPTIDE 479 pg/mL (0-100)
[2025-02-12] MEDS: dexmedeTOMIDine 400MCG/NS100ML IV SCH (00:34)
[2025-02-12] MEDS: HEParin 25,000 UNITS/250ML D5W 250 ML IV SCH (00:41)
[2025-02-12] MEDS: ceFEPime HCL 1 GM VIAL IVPB SCH (00:42)
[2025-02-12] MEDS: DEXTROSE 5%-WATER 1,000 ML IV SCH (00:43)
[2025-02-12] MEDS: VANCOMYCIN KIT 1 GM/250 ML IV.KIT IV ONE (00:43)
[2025-02-12] MEDS ORDERED: VANCOMYCIN PROTOCOL PER PHARMACY IV SCH (02:00)
--- NOTE | 2025-02-12 02:21 | CONS ---
[facility] CONSULTATION NOTE Date Patient Seen: Feb 12, 2025 Time of Visit: 02:21 Supervising Physician: Dr. Portillo Reason for Consultation: [facility] Primary Care Physician: Dr. Dominguez Outpatient Specialists: Inpatient Consults: BIS, critical care team PROBLEM LIST: Acute hypoxemic and hypercapnic respiratory failure, POA, suspected PE Pneumonia, bilateral, POA Sepsis, POA Acute metabolic encephalopathy, POA Non ST elevated TN, POA LVEF is 40-45%, anterior wall is hypokinetic Acute on chronic diastolic heart failure Stage II diastolic dysfunction Right leg DVT, POA Left upper extremity DVT, POA Rhabdomyolysis, POA Acute on chronic CHF exacerbation, POA Acute on chronic anemia, POA Leukocytosis, POA Electrolyte derangement (hyponatremia, hyperchloremia, hypocalcemia) Chronic problem list: CAD, CHF, Diabetes-Type II, Hypertension, CAD s/p CABG, left hip surgery HPI: Mr. Whitfield is a 79-year-old male with history of diabetes mellitus, hypertension, hyperlipidemia, recent hip surgery, metabolic encephalopathy, CAD status post CABG who presented [place] [facility] for evaluation of increasing dyspnea. Patient was transferred from [facility] with increasing dyspnea. The patient was on BiPAP at [facility], per report 05/02 and FiO2 of 100%. On arrival the patient was tachypneic, on Precedex drip, and on heparin drip for DVTs of left upper extremity and right leg DVT-(no reports were sent). It also appears that the patient received morphine. On arrival ED provided the patient was quite somnolent but after awhile did open his eyes and nodded appropriately. V/S on arrival: Temperature 99 pulse 110 respirations 18 blood pressure 127/58 with a pulse oximetry of 92% on FiO2 of 100% on BiPAP of 16/10 with a set respiratory rate of 26. Twelve lead EKG: Normal sinus rhythm with sinus tachycardia (HR 112 bpm) occasional PVCs nonspecific ST-T changes in the lateral leads overall appears somewhat low voltage. Probable left atrial enlargement The patient was hospitalized in January 12, 2025 for hip repair on the left side after which was transferred to [facility] for subacute rehab. Patient was sent back week january from [facility] with increasing shortness of for further evaluation patient needed O2 via non-rebreather mask and his workup was consistent with volume overload. He remained on the non-rebreather mask and eventually was transferred to [facility] LT. For anemia GI was consulted and as the patient was unstable on high FiO2 requirements EGD was deferred to a later date when patient was more stable. Labs: White count of 23.9 hemoglobin 8.3 BNP 7, sodium of 152, chloride of 115,, BUN and creatinine are 68 and 1.4, troponins 1st set was 273, BNP 479. Chest x-ray shows bilateral diffuse pulmonary infiltrates. Blood cultures and septic workup was initiated we will also start empiric antibiotic therapy.- cefepime IV plus vancomycin IV. ED provider request patient be admitted with the diagnosis of acute respiratory failure with hypoxia and hypercapnia, acute metabolic encephalopathy, acute on chronic diastolic heart failure, pneumonia of both lungs, acute CHF, NSTEMI, DVT of left upper extremity, Right leg DVT. The patient was admitted under Dr. Meléndez covering for Dr. Dominguez with BIS team as critical care consult. The the patient was assessed by me in ED 1. Daughter was at bedside. Patient appeared obtunded, on BiPAP, no efforts against ventilator. I informed the daughter of a labs, diagnostics, and plan of care. I informed her of patient's poor prognosis. The daughter reports patient is DNR and DNI at [facility] and is opting to continue with DNR and DNI status. Addendum: The patient arrived to ICU after while patient appeared more tachypneic, ABGs were done. Patient's blood pressure was low 90s. Upon noting this changes the family changed their mind and decided to have the patient intubated, but continued with decision for no compressions. ED doctor was arrieta d for intubation per family request. ED doctor spoke with family about patient's poor prognosis. Patient's family opted make the patient comfort measures. PAST MEDICAL HX: see above PAST SURGICAL HX: see above SOCIAL HISTORY: No tobacco, ETOH, or illicit drug use Coded Allergies: No Known Drug Allergies (Unverified Allergy, Unknown, 08/12/23) REVIEW OF SYSTEMS: Unable to obtain ROS from patient due to AMS. PHYSICAL EXAM: GENERAL: Appears weak, obtunded HEENT: EOMI, Sclera non icteric, moist mucosa NECK: Supple, no JVD, trachea midline LUNGS: Diminished breath sounds bilaterally. No wheezes. On BiPAP breathing is even, unlabored. HEART: Regular rate and rhythm. Normal S1 and S2, without murmurs ABD: Abdomen soft, nontender. Bowel sounds present EXT: No clubbing cyanosis or edema NEURO: Obtunded, not oriented, does not follow command, does not attempt to open eyes Vital Signs (last 8hr) Date Time Temp Pulse Resp B/P (MAP) Pulse Ox O2 Delivery O2 Flow Rate FiO2 02/11/25 23:52 110 32 100 02/11/25 23:12 99.0 115 26 122/47 99 BIPAP 02/11/25 23:12 99.0 110 18 127/58 92 Bi-PAP+ 100 LABS: Hematology Labs: Test 02/11/25 23:18 Range/Units White Blood Count 23.9 H 4.8-10.8 K/uL Red Blood Count 2.91 L 4.50-6.20 MIL/uL Hemoglobin 8.3 L 14.0-18.0 g/dL Hematocrit 28.3 L 42-54 % Mean Corpuscular Volume 97.3 79-99 fL Mean Corpuscular Hemoglobin 28.5 27.0-33.0 pg Mean Corpuscular Hemoglobin Concent 29.3 L 32.0-36.0 g/dL Red Cell Distribution Width 18.7 H 11.0-15.5 % Platelet Count 172 130-400 K/uL Mean Platelet Volume 12.8 H 7.5-10.5 fL Immature Granulocyte % (Auto) 0.8 0-1 % Neutrophils (%) (Auto) 90.8 H 40.0-77.0 % Lymphocytes (%) (Auto) 5.1 L 21.0-51.0 % Monocytes (%) (Auto) 3.1 3.0-13.0 % Eosinophils (%) (Auto) 0.0 0.0-8.0 % Basophils (%) (Auto) 0.2 0.0-5.0 % Neutrophils # (Auto) 21.7 H 1.8-7.7 K/uL Lymphocytes # (Auto) 1.2 1.0-4.8 K/uL Monocytes # (Auto) 0.8 0.1-1.0 K/uL Eosinophils # (Auto) 0.00 0.00-0.70 K/uL Basophils # (Auto) 0.04 0.00-0.20 K/uL Absolute Immature Granulocyte (auto 0.19 0-1 K/uL Nucleated Red Blood Cells 1.6 H 0.0-0.19 % White Cell Morphology Comment See comments Red Blood Cell Morphology See comments Chemistry Labs: Test 02/11/25 23:18 Range/Units Sodium Level 152 H 136-145 mmol/L Potassium Level 3.7 3.5-5.1 mmol/L Chloride Level 115 H 101-111 mmol/L Carbon Dioxide Level 31 21-32 mmol/L Blood Urea Nitrogen 68 H 7-18 mg/dL Creatinine 1.4 H 0.5-1.3 mg/dL Glomerular Filtration Rate Calc 51 >90 mL/min Random Glucose 101 70-105 mg/dL Total Calcium 8.0 L 8.5-10.1 mg/dL Total Creatine Kinase 658 #*H 21-232 U/L Troponin I High Sensitivity 273 *H 4-75 ng/L B-Type Natriuretic Peptide 479 H 0-100 pg/mL Coagulation Labs: Test 02/11/25 23:18 Range/Units Prothrombin Time 20.3 H 9.6-11.6 SEC Prothromb Time International Ratio 2.06 H 0.85-1.15 Activated Partial Thromboplast Time 90.2 *H 26.3-35.5 SEC DIAGNOSTICS / RADIOLOGY RESULTS: [ ] PLAN Admit to ICU with continuous cardiac and telemetry monitoring. -Monitor respiratory status closely. -Continue BiPAP, titrate oxygen prn to keep Spo2>/+=92%. -Albuterol and Atrovent scheduled. -Solu-Medrol IV daily. -Continue antibiotic therapy: Vancomycin IV and cefepime IV -Levophed PRN systolic b/p less than 65. -PRN medications for: Pain management, fever, N/V, constipation. -Glucometer checks AC & HS needed with insulin regular sliding scale coverage as needed. -Vital signs per ICU -Reconcile home medications once available. With a plan to start patient medications that were start insulin. -Start TPN. - Monitor renal and liver function. -Monitor electrolytes and treat accordingly. -AM labs: CBC, CMP,, mag, phos, TSH, A1C. -GI and DVT prophylaxis: Protonix and heparin ADDENDUM: The patient was made comfort measures per family request. Start comfort measures only. NEURO: Minimize central acting medications as possible. Fall Precautions. Well lighted room through the day and minimize interruptions through the night to prevent acute delirium. PULMONARY: Supplemental 02 as needed Titrate Fio2 to keep Spo2 > or = 90% DuoNebs and CPT as needed IS hourly while awake for pulmonary hygiene Out of bed to chair as tolerated VAP Bundle CARDIOVASCULAR: Follow hemodynamics. Titrate vasopressor to keep MAP >65 or systolic blood pressure >95mmHg GI & NUTRITION: Continue nutritional support Aspirations precautions Prokinetic agents and laxatives as needed KIDNEYS & ELECTROLYTES: Strict monitoring of intake and output Daily weights Avoid nephrotoxic agents Monitor electrolytes and replace as needed Goal urine output of 30mL/hr or 0.5mL/kg/hr ENDOCRINE: Maintain blood glucose between 100-180 at all times. Insulin sliding scale for blood glucose management INFECTIOUS DISEASE: Trend temperature. Rutherford-culture if febrile. HEMATOLOGY & COAGULATION: Monitor H&H. Keep Hgb > 7 Transfuse 1 unit of PRBC for Hgb < 7 Transfuse 1 pack of platelets of platelets < 20, 000 Watch for any signs and symptoms of bleeding SKIN: Pressure ulcer prevention per facility protocol Rehab: PT/OT Code Status: Full Resuscitation Disposition: [Admit to ICU] Other: Due to a high probability for clinically significant, life-threatening deterioration, the patient required my highest level of preparedness to intervene emergently, and I personally spent over 60 minutes of critical care time directly and personally managing the patient. I devoted my full attention to the patient during this time, which is separate from time spent on any billable procedures. This includes time spent involved in work directly related to the care of the patient: such as review of prior records, development of treatment plan with patient and/or surrogate as well as nursing, discussions with consultants, evaluation of patient's response to treatment, examination of patient, obtaining history from patient or surrogate, ordering and performing treatments and interventions, ordering and review of laboratory studies, ordering and review of radiographic studies, pulse oximetry and re-evaluation of patient's condition, discussions with the family members and the patient, and any required documentation. This critical care time was performed to assess and manage the high probability of imminent life-threatening deterioration that could result in multi-organ failure. The case was discussed with Dr. Alayna Portillo, my supervising physician. This dictation was prepared using [employer] voice recognition software. As a result, errors may occur. When identified, these errors have been corrected. While every attempt is made to correct errors during dictation, errors may still exist. [facility] Feb 12, 2025 02:21
[2025-02-12] MEDS ORDERED: LAbetaLOL 20MG SYG IV PRN (02:30)
[2025-02-12] MEDS ORDERED: LACTULOSE 20 GM/30 ML UDCUP PO PRN (02:30)
[2025-02-12] MEDS ORDERED: doCUSate SODIUM 100 MG CAP PO PRN (02:30)
[2025-02-12] MEDS ORDERED: acetaMINOPHEN 325 MG TAB PO PRN (02:30)
[2025-02-12] MEDS ORDERED: ondanSETRON 4MG INJ IVP PRN (02:30)
[2025-02-12] MEDS ORDERED: acetaMINOPHEN 650 MG SUPPOSITORY RC PRN (02:30)
[2025-02-12] MEDS ORDERED: TEMAZepam 15 MG CAPSULE PO PRN (02:30)
--- NOTE | 2025-02-12 02:49 | NUR ---
CRITICAL CARE CONSULT DONE; AZAR FISHER CLIENT INSIGHTS CONSULTANT AT BEDSIDE TO EVALUATE PATIENT
[2025-02-12 03:57] LABS: SARS-CoV-2, RNA, NAAT NEGATIVE SARS CoV-2 (NEGATIVE)
[2025-02-12 04:01] LABS: INFLUENZA TYPE A Negative For Type A (NEGATIVE); INFLUENZA TYPE B Negative For Type B (NEGATIVE)
[2025-02-12] MEDS: DEXTROSE 50%-WATER 50 ML DISP.SYRIN IV ONE (04:18)
[2025-02-12] MEDS ORDERED: ZOSYN 3.375GM +NS 50ML IVPB SCH (05:00)
[2025-02-12 05:09] LABS: ABG BASE EXCESS -1.3 mmol/L (-2.0-3.0); ABG HCO3 27.2 mmol/L (21.0-28.0); ABG OXYGEN SATURATION 99.2 % (94.0-98.0); CARBON MONOXIDE 0.7 % (0.5-1.5); DEVICE COMMENT JAMES RN ,RR; HHb 0.8; PO2, ARTERIAL BG 244.3 mmHg (83.0-108.0)
[2025-02-12 05:33] LABS: ALBUMIN 1.5 g/dL (3.5-5.0); BILIRUBIN,TOTAL 1.2 mg/dL (0.2-1.0); CREATININE 1.4 mg/dL (0.5-1.3); POTASSIUM 3.9 mmol/L (3.5-5.1); TOTAL PROTEIN, SERUM 4.2 g/dL (6.0-8.3)
[2025-02-12 05:46] LABS: HEMATOCRIT 22.8 % (42-54); MEAN CORPUSCULAR HEMOGLOBIN 28.6 pg (27.0-33.0); MEAN CORPUSCULAR HGB CONC 29.4 g/dL (32.0-36.0); MEAN CORPUSCULAR VOLUME 97.4 fL (79-99); NUCLEATED RED BLOOD CELLS 0.9 % (0.0-0.19); RED BLOOD CELL COUNT(AUTO) 2.34 MIL/uL (4.50-6.20); RED CELL DISTRIBUTION WIDTH 18.6 % (11.0-15.5); WHITE BLOOD COUNT (AUTO) 19.9 K/uL (4.8-10.8)
--- NOTE | 2025-02-12 05:47 | NUR ---
CONTACTED [facility] AND SPOKE TO NEHEMIAH REGARDING ABG RESULTS. DAUGHTER SOHA CROWE STATED THAT THEY CHANGED THEIR MIND ON THE DNI AND SHE WANTED TO INTUBATE. PER NEHEMIAH HAVE PATIENT INTUBATED. DR JAMES FROM [facility] AND SPOKE TO FAMILY REGARDING PATIENTS CONDITION. DAUGTHER SOHA CROWE CHANGED HER MIND AND STATED THAT SHE WANTED TO IMLPEMENT COMFORT MEASURES. Addendum: 02/12/25 at 0813 by LINDSAY RUSSELL RN RN comfort measures document signed. Spoke to Nehemiah manager development and informed her of families wishes. Nehemiah ordered dc labs/ imaging/ studies, morphine 2 mg iv q1hr for dyspnea/pain, and Ativan 1 mg q 1hr for anxiety. Addendum: 02/12/25 at 0814 by LINDSAY RUSSELL RN RN continued from previous addendum: ativan 1 mg q 1hr ivp for anxiety, hospice order set was also ordered.
[2025-02-12 05:53] LABS: ABG PCO2 72 mmHg (35-48); ABG PH 7.196 (7.350-7.450)
[2025-02-12] MEDS ORDERED: PHENYLEPHRINE 100 MG/NS 250ML IV SCH (06:00)
[2025-02-12] MEDS: ALBUTEROL 0.083% 2.5 MG/3 ML INH IH SCH (06:00)
[2025-02-12] MEDS: IpraTROPium 0.5 MG/2.5 ML INH IH SCH (06:00)
[2025-02-12] MEDS: morPHINE 2 MG SYG ONE (06:15)
[2025-02-12] MEDS: LORazepam 2 MG/ML 1 ML VIAL IVP PRN (06:15)
[2025-02-12] MEDS ORDERED: ondanSETRON 4MG TABLET PO PRN (06:30)
--- NOTE | 2025-02-12 06:42 | ERN ---
CODEBLUE/INTUBATION/PROCEDURE DATE: 02/12/25 I was called to assist with intubation at 5:24 a.m. . Patient's daughter was at bedside and please note that patient's wishes were not to prolong his life with any life-sustaining devices and he has requested to be a do not resuscitate and [id number] all a long when he was in the [facility], [facility] as well as here which was verified with the daughter. Apparently the critical care team recommended intubation to the nurse who conveyed to the daughter. I had a very long discussion with the patient's daughter at bedside and went over all the medical problems that the patient has including sepsis with severe leukocytosis likely from bilateral pneumonia, NSTE ID with the 1st set of troponins in the 200s, acute renal insufficiency, electrolyte imbalance and respiratory failure with high FiO2 requirements. Patient's quality of life has been very poor for the past 3 months he has progressively declined in his functional status. I have explained to the patient's daughter that any change of his code status we will not improve the prognosis which is poor. Option a-intubating the patient we will add more to his suffering needing sedation and opioids which may not help with any communication that is otherwise possible. And patient is frail functional status would make it difficult to come off the ventilator and patient may need tracheostomy and feeding tube and LTAC placement again. Option b-to continue the current BiPAP with the patient has been trying to pull it off and maintain the code status as DNR DNI until all family members could come and visit the patient Option c-to actively withdrawal care and pursue comfort care only to avoid unnecessary procedures and prolonging his life with life-sustaining measures without adding any quality of life. This would allow the patient to be comfortable pain-free and measures would preserve his dignity. Patient's daughter after the exhaustive information and options being presented, clearly verbalized that the patient would not want to be prolonged unnecessarily with life-sustaining measures and that watching him on BiPAP being uncomfortable is not something that she would like to do and requested to keep him comfortable, pain-free and continue the code status DNR and DNI. Patient's daughter called the patient's and rest of the family members come to the hospital to visit him. (1) Acute respiratory failure with hypoxia and hypercapnia (2) Pneumonia of both lungs (3) Right leg DVT (4) NSTEMI (non-ST elevated myocardial infarction) (5) Acute on chronic diastolic heart failure (6) Sepsis (7) Deep vein thrombosis (DVT) of left upper extremity (8) Acute metabolic encephalopathy To honor patient's wishes, continue DNR DNI status and pursue comfort care only per my discussion with the daughter 30 minutes ZEESHAN JAMES MD Feb 12, 2025 06:42
--- NOTE | 2025-02-12 06:52 | NUR ---
RAD V/Q as per FLORENCE Sheldon; Exam will be canceled. FLORENCE arevalo.
[2025-02-12] MEDS: INSULIN humuLIN R 100 UNIT/ML 3ML SQ SCH (07:30)
[2025-02-12] MEDS: morPHINE 2 MG SYG IVP ONE ×2 (07:32→09:37)
--- NOTE | 2025-02-12 11:20 | PN ---
[facility] PROGRESS NOTE Date Patient Seen: Feb 12, 2025 Time of Visit: 11:20 Supervising Physician: Dr. Portillo Primary Care Physician: Dr. Dominguez Outpatient Specialists: Inpatient Consults: BIS, critical care team PROBLEM LIST: Acute hypoxemic and hypercapnic respiratory failure, POA, suspected PE Pneumonia, bilateral, POA Sepsis, POA Acute metabolic encephalopathy, POA Non ST elevated [place], POA LVEF is 40-45%, anterior wall is hypokinetic Acute on chronic diastolic heart failure Stage II diastolic dysfunction Right leg DVT, POA Left upper extremity DVT, POA Rhabdomyolysis, POA Acute on chronic CHF exacerbation, POA Acute on chronic anemia, POA Leukocytosis, POA Electrolyte derangement (hyponatremia, hyperchloremia, hypocalcemia) Chronic problem list: CAD, CHF, Diabetes-Type II, Hypertension, CAD s/p CABG, left hip surgery INTERVAL HISTORY: 02/12/2025: At the time of my evaluation, the patient is lying in bed. He is on a nasal cannula for oxygen supplementation. Hypotensive on the monitor systolic in the 70s. ABG today showed a pH of 7.19, pCO2 72, PO2 244, HC03 27, O2 sat 99.2 and base excess of -1.3. Laboratory data today was notable for WBC of 19.9, H&H 6.7/22.8 and a platelet count of 140. On chemistry, patient had a sodium of 155, potassium 3.9, chloride 121, CO2 of 31, BUN 70, creatinine 1.4, GFR of 51. Lactic acid of 1.8. Total calcium of 7.5. Total bilirubin of 1.2, AST 80, ALT 133 and alk-phos of 367. Total protein of 4.2 and a albumin of 1.5. PTT of > 139.0. No new imaging for review today. REVIEW OF SYSTEMS: Unable to obtain ROS from patient due to AMS. PHYSICAL EXAM: GENERAL: Appears weak, obtunded HEENT: EOMI, Sclera non icteric, moist mucosa NECK: Supple, no JVD, trachea midline LUNGS: Diminished breath sounds bilaterally. No wheezes. On BiPAP breathing is even, unlabored. HEART: Regular rate and rhythm. Normal S1 and S2, without murmurs ABD: Abdomen soft, nontender. Bowel sounds present EXT: No clubbing cyanosis or edema NEURO: Obtunded, not oriented, does not follow command, does not attempt to open eyes Vital Signs (last 8hr) Date Time Temp Pulse Resp B/P (MAP) Pulse Ox O2 Delivery O2 Flow Rate FiO2 02/12/25 10:00 96 8 74/32 (46) 75 28 02/12/25 08:00 Nasal Cannula* 2 28 02/12/25 06:45 91 16 46 28 02/12/25 06:36 85 19 N/Cannula Low lpm 2.0 02/12/25 06:30 96 16 44 28 02/12/25 06:15 113 33 143/86 (105) 100 28 02/12/25 06:00 92 47 109/44 (65) 100 28 02/12/25 05:57 93 32 100 02/12/25 05:46 104 23 128/57 (80) 100 100 02/12/25 05:30 93 64 96/50 (65) 100 100 02/12/25 05:15 93 10 112/50 (70) 100 100 02/12/25 05:00 100 Bi-PAP+ 100 02/12/25 05:00 109 13 130/65 (86) 100 100 02/12/25 04:45 93 10 97/33 (54) 100 100 02/12/25 04:30 97 9 96/53 (67) 100 100 02/12/25 04:15 109 27 120/54 (76) 100 100 02/12/25 03:56 97.2 116 27 158/77 (104) 100 100 02/12/25 03:30 86 30 114/41 92 Bi-PAP+ 100 LABS: Hematology Labs: Test 02/12/25 04:31 02/11/25 23:18 Range/Units White Blood Count 19.9 H 4.8-10.8 K/uL Red Blood Count 2.34 L 4.50-6.20 MIL/uL Hemoglobin 6.7 *L 14.0-18.0 g/dL Hematocrit 22.8 L 42-54 % Mean Corpuscular Volume 97.4 79-99 fL Mean Corpuscular Hemoglobin 28.6 27.0-33.0 pg Mean Corpuscular Hemoglobin Concent 29.4 L 32.0-36.0 g/dL Red Cell Distribution Width 18.6 H 11.0-15.5 % Platelet Count 140 130-400 K/uL Mean Platelet Volume 12.0 H 7.5-10.5 fL Nucleated Red Blood Cells 0.9 H 0.0-0.19 % Immature Granulocyte % (Auto) 0.8 0-1 % Neutrophils (%) (Auto) 90.8 H 40.0-77.0 % Lymphocytes (%) (Auto) 5.1 L 21.0-51.0 % Monocytes (%) (Auto) 3.1 3.0-13.0 % Eosinophils (%) (Auto) 0.0 0.0-8.0 % Basophils (%) (Auto) 0.2 0.0-5.0 % Neutrophils # (Auto) 21.7 H 1.8-7.7 K/uL Lymphocytes # (Auto) 1.2 1.0-4.8 K/uL Monocytes # (Auto) 0.8 0.1-1.0 K/uL Eosinophils # (Auto) 0.00 0.00-0.70 K/uL Basophils # (Auto) 0.04 0.00-0.20 K/uL Absolute Immature Granulocyte (auto 0.19 0-1 K/uL White Cell Morphology Comment See comments Red Blood Cell Morphology See comments Chemistry Labs: Test 02/12/25 04:31 02/12/25 04:30 02/11/25 23:18 Range/Units Sodium Level 155 H 136-145 mmol/L Potassium Level 3.9 3.5-5.1 mmol/L Chloride Level 121 *H 101-111 mmol/L Carbon Dioxide Level 31 21-32 mmol/L Blood Urea Nitrogen 70 H 7-18 mg/dL Creatinine 1.4 H 0.5-1.3 mg/dL Glomerular Filtration Rate Calc 51 >90 mL/min Random Glucose 207 #H 70-105 mg/dL Lactic Acid Level 1.8 0.8-2.5 mmol/L Total Calcium 7.5 L 8.5-10.1 mg/dL Total Bilirubin 1.2 H 0.2-1.0 mg/dL Aspartate Amino Transf (AST/SGOT) 80 H 10-37 U/L Alanine Aminotransferase (ALT/SGPT) 133 H 12-78 U/L Alkaline Phosphatase 367 H 50-136 U/L Total Protein 4.2 L 6.0-8.3 g/dL Albumin 1.5 L 3.5-5.0 g/dL Whole Blood Glucose 126 #H 70-110 MG/DL Total Creatine Kinase 658 #*H 21-232 U/L Troponin I High Sensitivity 273 *H 4-75 ng/L B-Type Natriuretic Peptide 479 H 0-100 pg/mL Coagulation Labs: Test 02/12/25 04:31 02/11/25 23:18 Range/Units Activated Partial Thromboplast Time > 139.0 #*H 26.3-35.5 SEC Prothrombin Time 20.3 H 9.6-11.6 SEC Prothromb Time International Ratio 2.06 H 0.85-1.15 DIAGNOSTICS / RADIOLOGY RESULTS: [ ] PLAN 02/12/2025: For now, we are going to continue current comfort measures as requested. All recurrent tests were discontinued. The patient will remain on morphine 2 mg q.1 hour p.r.n. and lorazepam 1 mg q.1 hour p.r.n. we will transfer the patient out of the ICU once there is a room available. We will also sign off the case on transfer care back to the primary MD. Thank you for allowing us to participate in patient care. NEURO: Minimize central acting medications as possible. Maintain fall precautions, adequate lighting during the day PULMONARY: Supplemental 02 as needed. Maintain aspiration precautions at all times CARDIOVASCULAR: Follow hemodynamics. Vital signs per facility protocol GI & NUTRITION: Continue with nutritional support. Continue stool softeners and laxatives as needed. KIDNEYS & ELECTROLYTES: Strict monitoring of intake, output and overall fluid balance. Avoid nephrotoxic medications to the extent possible. Medications to be dosed according to renal function. Monitor electrolytes and replace as needed ENDOCRINE: Maintain blood glucose between 100-180 at all times. Hypoglycemia protocol in place INFECTIOUS DISEASE: Trend temperature, WBC and procalcitonin level Follow cultures, deescalate antibiotics as soon as possible. Panculture if new onset fever ONCOLOGY/HEMATOLOGY/COAGULATION: Monitor for s/s of bleeding Monitor hemoglobin, coagulation studies as needed SKIN: Pressure ulcer prevention per facility protocol Specialty mattress ORTHO/REHAB: Continue PT/OT Prophylaxis: Continue GI and DVT prophylaxis Code Status: Full Resuscitation Disposition: TBD Other: AYLA SANDHU NP Feb 12, 2025 11:20
[2025-02-12] MEDS: morPHINE 2 MG SYG IVP PRN (12:44)
--- NOTE | 2025-02-12 15:28 | EKG ---
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 : [id number] Requested By: ZEESHAN JAMES Order Number: [id number] Reading MD: Colt Taveras Measurements Intervals [place] Rate: 112 P: 45 ND: 124 QRS: -26 QRSD: 79 T: 91 QT: 336 QTc: 459 Interpretive Statements Sinus tachycardia Paired ventricular premature complexes Low voltage, precordial leads Nonspecific T abnormalities, lateral leads Compared to ECG 01/25/2025 15:24:05 Low QRS voltage now present T-wave abnormality now present Myocardial infarct finding no longer present Electronically Signed On 02-13-2025 12:42:54 CDT by Colt Taveras Please click the below link to view image of tracing.
--- NOTE | 2025-02-12 16:15 | HP ---
ADMITTING HISTORY AND PHYSICAL CHIEF COMPLAINT: Shortness of breath and leg swelling and DVT. HISTORY OF PRESENT ILLNESS: This is a 79-year-old gentleman who has a history of hip repair recently on 01/12 and the patient subsequently went to the skilled care facility. The patient has increasing shortness of breath. The patient also found to have a DVT in the left upper extremity. The patient has a PICC line there. The patient also has a right leg DVT and the patient was on heparin drip. The patient is also on Precedex drip and the patient arrived to the Emergency Room. The patient is subsequently admitted to the ICU for further management as the patient is requiring 100% oxygen, satting at 92%. The patient has tachypnea and tachycardia also. The patient is febrile. PAST MEDICAL HISTORY: Significant for diabetes mellitus, hypertension, hyperlipidemia, metabolic encephalopathy, coronary artery disease. PAST SURGICAL HISTORY: Recent hip surgery and the patient also has a CABG. MEDICATIONS: The patient is on hydrocodone, cyclobenzaprine, aspirin, ferrous sulfate, tamsulosin, atorvastatin, Colace, lactulose, Megace, calcium carbonate, insulin, sitagliptin, metformin, sertraline, metoprolol. FAMILY HISTORY: Noncontributory. SOCIAL HISTORY: Negative for smoking, alcohol. REVIEW OF SYSTEMS: HEENT: Upper respiratory symptoms. CARDIOVASCULAR: Shortness of breath. RESPIRATORY: Shortness of breath. GASTROINTESTINAL: Nausea. GENITOURINARY: Negative. MUSCULOSKELETAL: Leg swelling and arm swelling. PHYSICAL EXAMINATION: GENERAL: The patient is awake, but does not follow commands as the patient appears to be in shortness of breath. VITAL SIGNS: The patient is on BiPAP and the patient's temperature 99, pulse is 110, respirations 26, pulse ox is 92% on FIO2 of 100. HEENT: Mucous membranes appear to be dry. NECK: Supple, with prominent JVD. LUNGS: The patient has decreased breath sounds bilateral bases. Rhonchi all over the lung ortez. There is no wheezing noted at this time, but rhonchi noted over the lung ortez. HEART: Regular rate and rhythm, tachycardia. ABDOMEN: Soft, nontender. NEUROLOGIC: No focal deficits noted. LABORATORY DATA: Significant for recent echocardiogram shows left ventricular ejection fraction of 40%. WBCs of 30,000. Troponin of 273. Hemoglobin appears to be 6.7. ASSESSMENT AND PLAN: Acute on chronic respiratory failure, pneumonia, congestive heart failure, non-ST myocardial infarction. The patient is admitted to the ICU. The patient will padilla cultures. The patient is on antibiotics. The patient is on supplemental oxygen. Discussed with family members regarding further care. Continue present support at this time. The patient's hemoglobin is dropping between 8.4 to 6.7, needs to be monitored. The patient's overall condition is guarded. Prognosis remains poor. TID: [id number] RECEIPT: [id number] cc: Trung Rogel MD
[2025-02-12] MEDS: VANCOMYCIN 1G/250ML KIT 250 ML IV SCH (19:45)
[2025-02-12] MEDS: ARTIFICAL TEARS SOL 15 ML OU PRN (21:31)
[2025-02-12] MEDS: BIOTENE 44.3 ML SOLUTION MM PRN (21:31)
--- NOTE | 2025-02-13 20:30 | DS ---
SUMMARY HOSPITAL COURSE: A 79-year-old gentleman was brought to the Emergency Room with acute respiratory failure with hypoxia and hypercapnia. The patient also has subendocardial PA with acute kidney injury with hypotension and leukocytosis. The patient is anemic and the patient's family decided the patient to be in comfort care and the patient on 02/12/2025. TID: [id number] RECEIPT: [id number]
== END 2025-02-12 23:01 | DRG 871 ==
LOC: EDH 23:01 → EDHIP 02-12 01:56 → 2CH 02-12 03:30
PROVIDERS: ADMIT Internal Medicine; ATTEND Internal Medicine
PROC: 5A09357 Assistance with Respiratory Ventilation, Less than 24 Consecutive Hours, Continuous Positive Airway Pressure (ICD-10-PCS; principal; 2025-02-12)
DX: A41.9 Sepsis, unspecified organism (principal); G93.41 Metabolic encephalopathy; I21.4 Non-ST elevation (NSTEMI) myocardial infarction; I50.33 Acute on chronic diastolic (congestive) heart failure; J96.21 Acute and chronic respiratory failure with hypoxia; J96.22 Acute and chronic respiratory failure with hypercapnia; J18.9 Pneumonia, unspecified organism; E87.1 Hypo-osmolality and hyponatremia; I82.622 Acute embolism and thrombosis of deep veins of left upper extremity; I82.491 Acute embolism and thrombosis of other specified deep vein of right lower extremity; M62.82 Rhabdomyolysis; N17.9 Acute kidney failure, unspecified; Z20.822 Contact with and (suspected) exposure to COVID-19; I11.0 Hypertensive heart disease with heart failure; E11.9 Type 2 diabetes mellitus without complications; D64.9 Anemia, unspecified; E78.5 Hyperlipidemia, unspecified; E83.51 Hypocalcemia; E87.8 Other disorders of electrolyte and fluid balance, not elsewhere classified; I49.3 Ventricular premature depolarization; I25.10 Atherosclerotic heart disease of native coronary artery without angina pectoris; Z95.1 Presence of aortocoronary bypass graft; Z51.5 Encounter for palliative care; Z79.899 Other long term (current) drug therapy
CPT/HCPCS: 36415; 36600; 71045; 80048; 80053; 82435; 82550; 82803; 82947; 82948; 83605; 83880; 84132; 84295; 84484; 85018; 85025; 85027; 85610; 85730; 87040; 87635; 87804; 93005; 94660; 94664; 96374; 99291; G0378; J0692; J1644; J2060; J2270; J2371; J3010; J3370; J7050; J7070